=== PATIENT | male | born 1975 | race Caucasian/White ===

== ENCOUNTER 2019-09-15 04:25 | Observation (INO) | payer BC, SELFPAY ==
[2019-09-15] VITALS (28 sets, daily range): BP systolic 125–171; BP diastolic 63–93; PULSE 63–100; RESP 11–20; TEMP 36.6–36.8; O2SAT 92–97; BMI 41.0
--- NOTE | 2019-09-15 04:32 | ED_ITS ---
Entered by Julisa Bettencourt, acting as scribe for Juan Aguilera MD Documented by User: Juan Aguilera MD 09/15/19 05:21 HPI - Chest Pain General: Chief Complaint: Chest Pain Stated Complaint: CP/SOB Time Seen by Provider: 09/15/19 04:29 Source: patient and family Mode of arrival: ambulatory Limitations: no limitations History of Present Illness: HPI narrative: 43 y/o male presents to the ED with complaint of chest pain and SOB. Pt states he has had some upper respiratory issues recently: cough, congestion. He has had some abnormal EKGs noted by Dr. Palencia and has a stress test scheduled for Wednesday. Pt states he has had symptoms similar to this in the past, but tonight seems to be more respiratory in nature, as opposed to the usual cardiac episodes. MD complaint: chest pain Onset (ago): hour(s) Timing of current episode: constant Prior episodes: Yes Onset: during rest Associated symptoms: Reports dyspnea; Deny abdominal pain, fever(s), nausea or vomiting Review of Systems Const: Denies: fever or chills Eyes: Denies: change in vision ENMT: Reports: nasal discharge and nasal congestion Card: Reports: chest pain Resp: Reports: shortness of breath, productive cough, pain on inspiration and chest congestion GI: Denies: abdominal pain, nausea, vomiting or diarrhea Musc: Denies: back pain or joint pain Skin/Breast: Denies: rash Neuro: Denies: headache or behavioral changes Psych: Denies: depression Endo: Denies: excessive urination Uziel/Lymph: Denies: easy bruising All/Imm: Denies: hives PFSH ED PFSH: Statuses (acute, chronic, etc) shown below reflect problem list status as previously entered and may not be historically accurate Family History Mother CAD (coronary artery disease) Father Stroke Social History Smoking and tobacco status: former smoker Alcohol intake: never Substance/Drug Use: never Physical Exam Const: COMMON NORMALS: no apparent distress, oriented x3 and healthy appearing HENMT: COMMON NORMALS: normocephalic and external nose normal HEAD & SCALP: normocephalic NOSE: external nose normal Eye: COMMON NORMALS: PERRL PUPIL: Yes PERRL Neck/C-Spine: COMMON NORMALS: full ROM and no lymphadenopathy Chest: COMMONS NORMALS: inspection of chest normal Resp: COMMON NORMALS: normal respiratory effort, no use of accessory muscles and clear to auscultation bilaterally AUSCULTATION: clear to auscultation bilaterally Cardio: COMMON NORMALS: regular rate and regular rhythm RATE: regular rate RHYTHM: regular rhythm GI: COMMON NORMALS: normal to inspection, nondistended, normoactive bowel sounds, soft to palpation, non-tender and no masses PALPATION: Yes soft Back/Pelvis: THORACIC SPINE/UPPER BACK: Yes normal to inspection Extremity: COMMON NORMALS: normal to inspection, full ROM and normal capillary refill Neuro: COMMON NORMALS: oriented x3 Psych: COMMON NORMALS: mental status grossly normal and cooperative Skin: COMMON NORMALS: no rashes or lesions noted GENERAL SKIN EXAM: no rashes or lesions noted Course Vital Signs: Vital signs: Vital Signs Temperature 98.6 F 09/16/19 14:11 Pulse Rate 76 09/16/19 12:00 Respiratory Rate 16 09/16/19 14:11 Blood Pressure 110/75 09/16/19 12:00 Pulse Oximetry 96 09/16/19 14:11 MDM - Chest Pain MDM Narrative: Medical decision making narrative: Patient presents here with chest pain. Patient's initial EKG here is normal and x-ray is normal as well. He has been pain-free while he is here. Patient's care turned over to Dr. Orantes to follow labs including troponin and likely 2-hour troponin. He is scheduled for a stress test next Wednesday. Lab Data: Labs: Lab Results 09/15/19 09/15/19 09/15/19 Range/Units 04:43 04:43 04:43 WBC 11.0 H (4.0-10.0) 10^3/ uL RBC 4.78 (4.1-5.3) 10^6/u L Hgb 13.2 (11.7-16.6) g/dL Hct 40.4 L (42.0-52.0) % MCV 84.5 (80-94) fL MCH 27.6 L (28.0-34.0) pg MCHC 32.7 (30.0-36.0) g/dL RDW 12.2 (12.1-15.1) % Plt Count 261 (130-400) 10^3/c mm MPV 11.0 H (7.4-10.4) fL Neut % (Auto) 65.3 % Lymph % (Auto) 25.3 % Kay % (Auto) 6.4 % Eos % (Auto) 2.1 % Baso % (Auto) 0.5 % Neut # (Auto) 7.2 (1.8-7.7) 10^3/u L Lymph # (Auto) 2.8 (0.8-4.8) 10^3/u L Kay # (Auto) 0.7 (0.2-0.9) 10^3/u L Eos # (Auto) 0.2 (0.0-0.8) 10^3/u L Baso # (Auto) 0.1 (0.0-0.1) 10^3/u L Nucleated RBC % (a uto) 0 % Nucleated RBCs # 0.0 /100WBC Sodium 134 L (136-145) mmol/L Potassium 3.9 (3.5-5.1) mmol/L Chloride 100 (98-107) mmol/L Carbon Dioxide 25 (22-29) mmol/L Anion Gap 12.9 (5-19) BUN 14 (6-20) mg/dL Creatinine 0.7 (0.7-1.2) mg/dL GFR Calculation 123.1 (90-130) mL/min Glucose 134 H (74-109) mg/dL POC Glucose (70-110) mg/dL Calcium 9.9 (8.6-10.0) mg/Dl Total Bilirubin 0.2 (0.15-1.2) mg/dL AST 16 (0-40) U/L ALT 26 (0-41) U/L Alkaline Phosphata se 112 (40-130) IU/L Troponin T Baselin e 6 (0-15) ng/mL Troponin T 120 Min [place] (0-15) ng/mL Delta Troponin T (0-10) ABS# NT-Pro-B Natriuret Pep 22 (0-125) pg/mL Total Protein 6.4 L (6.6-8.7) g/dL Albumin 4.2 (3.5-5.2) g/dL Globulin 2.2 (1.3-4.6) g/dL 09/15/19 09/15/19 Range/Units 04:43 06:57 WBC (4.0-10.0) 10^3/ uL RBC (4.1-5.3) 10^6/u L Hgb (11.7-16.6) g/dL Hct (42.0-52.0) % MCV (80-94) fL MCH (28.0-34.0) pg MCHC (30.0-36.0) g/dL RDW (12.1-15.1) % Plt Count (130-400) 10^3/c mm MPV (7.4-10.4) fL Neut % (Auto) % Lymph % (Auto) % Kay % (Auto) % Eos % (Auto) % Baso % (Auto) % Neut # (Auto) (1.8-7.7) 10^3/u L Lymph # (Auto) (0.8-4.8) 10^3/u L Kay # (Auto) (0.2-0.9) 10^3/u L Eos # (Auto) (0.0-0.8) 10^3/u L Baso # (Auto) (0.0-0.1) 10^3/u L Nucleated RBC % (a uto) % Nucleated RBCs # /100WBC Sodium (136-145) mmol/L Potassium (3.5-5.1) mmol/L Chloride (98-107) mmol/L Carbon Dioxide (22-29) mmol/L Anion Gap (5-19) BUN (6-20) mg/dL Creatinine (0.7-1.2) mg/dL GFR Calculation (90-130) mL/min Glucose (74-109) mg/dL POC Glucose 121 (70-110) mg/dL Calcium (8.6-10.0) mg/Dl Total Bilirubin (0.15-1.2) mg/dL AST (0-40) U/L ALT (0-41) U/L Alkaline Phosphata se (40-130) IU/L Troponin T Baselin e (0-15) ng/mL Troponin T 120 Min [place] 6.00 (0-15) ng/mL Delta Troponin T 0 (0-10) ABS# NT-Pro-B Natriuret Pep (0-125) pg/mL Total Protein (6.6-8.7) g/dL Albumin (3.5-5.2) g/dL Globulin (1.3-4.6) g/dL Imaging Data^: CXR: Attestation: I personally reviewed and interpreted this imaging study as follows: My impression: No acute abnormality EKG Data^: EKG 1: Attestation: I personally reviewed and interpreted this EKG as follows: EKG interpretation date: 09/15/19 EKG interpretation time: 04:32 Interpretation: Normal sinus rhythm heart rate [address] or T wave abnormalities QRS 110 QTc 400 Discharge Plan Discharge Patient Disposition: Admitted As Inpatient Admit Provider: Mary Lopez Clinical Impression: Chest pain Qualifiers: Chest pain type: unspecified Qualified Code(s): R07.9 - Chest pain, unspecified Condition: Stable Discharge Orders: Discharge Order (Routine); Ordered 09/16/19 Ordered By: Mary Lopez Referrals: Callie Palencia MD [Physician] - 4-7 days (Please call Wednesday to set up a follow up appointment) Rena Hook DO [Primary Care Provider] - 4-7 days (Please call Wednesday to set up a follow up appointment.) Discharge Diet: Low Salt Discharge Activity: Resume usual activity Patient Instructions: Metolazone (By mouth), Potassium Chloride (By mouth), Congestive Heart Failure Additional Instructions: Lasix 80 mg twice daily Metolazone 2.5 mg twice daily, stop on Wednesday and call Dr. Palencia's office for further recommendations Increase potassium to 60 mEq twice daily Forms: Work/Release Restrictions Discharge Date/Time: 09/15/19 10:46 Sign Out Sign Out Data: Patient Sign Out occurred on 09/15/19 at 08:50. Patient's care was discussed, and care was transferred from to Ino Orantes DO. Coding Level of Care Code ED Audit Control Clerk for Chg Fwd Exam Problem Focused Documented by User: Ion Orantes DO 09/18/19 07:47 HPI - Chest Pain General: Chief Complaint: Chest Pain Stated Complaint: CP/SOB Time Seen by Provider: 09/15/19 04:29 Review of Systems Card: Reports: chest pain and shortness of breath on exertion PFSH ED PFSH: Statuses (acute, chronic, etc) shown below reflect problem list status as previously entered and may not be historically accurate Family History Mother CAD (coronary artery disease) Father Stroke Social History Smoking and tobacco status: former smoker Alcohol intake: never Substance/Drug Use: never Course ED course: 0755 Patient second troponin is negative. His chest x-ray is normal he is not having any orthopnea. Of concern is he is 43 years old and he has known coronary artery disease he is having chest pain and shortness of breath with exertion that is relieved by rest he is scheduled for a stress test early next week. At this point I think would be better to put him on observation consult cardiology see if they will go through the stress test or to some other other kind of diagnostic testing. Discussed with the patient and Dr. Moy Winter recommends observation patient is agreeable will admit to the hospitalist. [address] Winter and have also discussed with Dr. John Lopez will admit consult Dr. Winter. Vital Signs: Vital signs: Vital Signs Temperature 98.6 F 09/16/19 14:11 Pulse Rate 76 09/16/19 12:00 Respiratory Rate 16 09/16/19 14:11 Blood Pressure 110/75 09/16/19 12:00 Pulse Oximetry 96 09/16/19 14:11 MDM - Chest Pain Lab Data: Labs: Lab Results 09/15/19 09/15/19 09/15/19 Range/Units 04:43 04:43 04:43 WBC 11.0 H (4.0-10.0) 10^3/ uL RBC 4.78 (4.1-5.3) 10^6/u L Hgb 13.2 (11.7-16.6) g/dL Hct 40.4 L (42.0-52.0) % MCV 84.5 (80-94) fL MCH 27.6 L (28.0-34.0) pg MCHC 32.7 (30.0-36.0) g/dL RDW 12.2 (12.1-15.1) % Plt Count 261 (130-400) 10^3/c mm MPV 11.0 H (7.4-10.4) fL Neut % (Auto) 65.3 % Lymph % (Auto) 25.3 % Kay % (Auto) 6.4 % Eos % (Auto) 2.1 % Baso % (Auto) 0.5 % Neut # (Auto) 7.2 (1.8-7.7) 10^3/u L Lymph # (Auto) 2.8 (0.8-4.8) 10^3/u L Kay # (Auto) 0.7 (0.2-0.9) 10^3/u L Eos # (Auto) 0.2 (0.0-0.8) 10^3/u L Baso # (Auto) 0.1 (0.0-0.1) 10^3/u L Nucleated RBC % (a uto) 0 % Nucleated RBCs # 0.0 /100WBC Sodium 134 L (136-145) mmol/L Potassium 3.9 (3.5-5.1) mmol/L Chloride 100 (98-107) mmol/L Carbon Dioxide 25 (22-29) mmol/L Anion Gap 12.9 (5-19) BUN 14 (6-20) mg/dL Creatinine 0.7 (0.7-1.2) mg/dL GFR Calculation 123.1 (90-130) mL/min Glucose 134 H (74-109) mg/dL POC Glucose (70-110) mg/dL Calcium 9.9 (8.6-10.0) mg/Dl Total Bilirubin 0.2 (0.15-1.2) mg/dL AST 16 (0-40) U/L ALT 26 (0-41) U/L Alkaline Phosphata se 112 (40-130) IU/L Troponin T Baselin e 6 (0-15) ng/mL Troponin T 120 Min [place] (0-15) ng/mL Delta Troponin T (0-10) ABS# NT-Pro-B Natriuret Pep 22 (0-125) pg/mL Total Protein 6.4 L (6.6-8.7) g/dL Albumin 4.2 (3.5-5.2) g/dL Globulin 2.2 (1.3-4.6) g/dL 09/15/19 09/15/19 Range/Units 04:43 06:57 WBC (4.0-10.0) 10^3/ uL RBC (4.1-5.3) 10^6/u L Hgb (11.7-16.6) g/dL Hct (42.0-52.0) % MCV (80-94) fL MCH (28.0-34.0) pg MCHC (30.0-36.0) g/dL RDW (12.1-15.1) % Plt Count (130-400) 10^3/c mm MPV (7.4-10.4) fL Neut % (Auto) % Lymph % (Auto) % Kay % (Auto) % Eos % (Auto) % Baso % (Auto) % Neut # (Auto) (1.8-7.7) 10^3/u L Lymph # (Auto) (0.8-4.8) 10^3/u L Kay # (Auto) (0.2-0.9) 10^3/u L Eos # (Auto) (0.0-0.8) 10^3/u L Baso # (Auto) (0.0-0.1) 10^3/u L Nucleated RBC % (a uto) % Nucleated RBCs # /100WBC Sodium (136-145) mmol/L Potassium (3.5-5.1) mmol/L Chloride (98-107) mmol/L Carbon Dioxide (22-29) mmol/L Anion Gap (5-19) BUN (6-20) mg/dL Creatinine (0.7-1.2) mg/dL GFR Calculation (90-130) mL/min Glucose (74-109) mg/dL POC Glucose 121 (70-110) mg/dL Calcium (8.6-10.0) mg/Dl Total Bilirubin (0.15-1.2) mg/dL AST (0-40) U/L ALT (0-41) U/L Alkaline Phosphata se (40-130) IU/L Troponin T Baselin e (0-15) ng/mL Troponin T 120 Min [place] 6.00 (0-15) ng/mL Delta Troponin T 0 (0-10) ABS# NT-Pro-B Natriuret Pep (0-125) pg/mL Total Protein (6.6-8.7) g/dL Albumin (3.5-5.2) g/dL Globulin (1.3-4.6) g/dL Discharge Plan Discharge Patient Disposition: Admitted As Inpatient Admit Provider: Mary Lopez Clinical Impression: Chest pain Qualifiers: Chest pain type: unspecified Qualified Code(s): R07.9 - Chest pain, unspecified Condition: Stable Discharge Orders: Discharge Order (Routine); Ordered 09/16/19 Ordered By: Mary Lopez Referrals: Callie Palencia MD [Physician] - 4-7 days (Please call Wednesday to set up a follow up appointment) Rena Hook DO [Primary Care Provider] - 4-7 days (Please call Wednesday to set up a follow up appointment.) Discharge Diet: Low Salt Discharge Activity: Resume usual activity Patient Instructions: Metolazone (By mouth), Potassium Chloride (By mouth), Congestive Heart Failure Additional Instructions: Lasix 80 mg twice daily Metolazone 2.5 mg twice daily, stop on Wednesday and call Dr. Palencia's office for further recommendations Increase potassium to 60 mEq twice daily Forms: Work/Release Restrictions Discharge Date/Time: 09/15/19 10:46 Sign Out Sign Out Data: Patient Sign Out occurred on 09/15/19 at 08:50. Patient's care was discussed, and care was transferred from to Ino Orantes DO. Coding Level of Care Code ED Audit Control Clerk for Chg Fwd Exam Problem Focused The documentation recorded by the Sg baez Ashley, accurately reflects the service I personally performed and the decisions made by me, Juan Aguilera MD Sep 15, 2019 04:25
--- NOTE | 2019-09-15 04:34 | ECG_ITS ---
Measurements Intervals [place] Rate: 78 P: 52 MS: 168 QRS: 17 QRSD: 110 T: 37 QT: 367 QTc: 419 SINUS RHYTHM NONSPECIFIC T-WAVE ABNORMALITY Compared to ECG 03/26/2019 16:48:27 T-wave abnormality now present Electronically Signed On 09-15-2019 14:40:12 LOAN SERVICES PROFESSIONAL by Ishmael South M.D. [id number]
--- NOTE | 2019-09-15 04:34 | XR_ITS ---
WS: [id number] CHEST XRAY TECHNIQUE: Portable chest. CLINICAL INFORMATION: sob COMPARISON: None. FINDINGS: Heart: Normal cardiac silhouette. Lungs: Calcified granuloma right upper lobe. No acute pulmonary infiltrates. Bones: Normal visualized bony structures. XR/XR chest 1V portable [id number] IMPRESSION: No acute chest findings
[2019-09-15] MEDS: aspirin 81 mg Chew Tablet 324 MG PO (04:42)
--- NOTE | 2019-09-15 04:46 | PC.NURSE ---
Informed nurse and doctor of patient blood glucose is 121
[2019-09-15 04:49] LABS: Glucose Point of Care 121 mg/dL (70-110)
[2019-09-15 04:51] LABS: Basophils # 0.1 10^3/uL (0.0-0.1); Basophils % 0.5 %; Eosinophils # 0.2 10^3/uL (0.0-0.8); Eosinophils % 2.1 %; Hematocrit 40.4 % (42.0-52.0); Hemoglobin 13.2 g/dL (11.7-16.6); Lymphocytes # 2.8 10^3/uL (0.8-4.8); Lymphocytes % 25.3 %; Mean Corpuscular HGB Conc 32.7 g/dL (30.0-36.0); Mean Corpuscular Hemoglobin 27.6 pg (28.0-34.0); Mean Corpuscular Volume 84.5 fL (80-94); Monocytes # 0.7 10^3/uL (0.2-0.9); Monocytes % 6.4 %; Neutrophils # 7.2 10^3/uL (1.8-7.7); Neutrophils % 65.3 %; Nucleated Red Blood Cells % 0 %; Platelet Count 261 10^3/cmm (130-400); Red Blood Count 4.78 10^6/uL (4.1-5.3); Red Cell Distribution Width 12.2 % (12.1-15.1)
[2019-09-15 05:26] LABS: Troponin(5th) Baseline 6 ng/mL (0-15)
[2019-09-15 05:33] LABS: Alanine Aminotransferase 26 U/L (0-41); Albumin Level 4.2 g/dL (3.5-5.2); Alkaline Phosphatase 112 IU/L (40-130); Anion Gap 12.9 (5-19); Aspartate Amino Transferase 16 U/L (0-40); Blood Urea Nitrogen 14 mg/dL (6-20); Calcium 9.9 mg/Dl (8.6-10.0); Carbon Dioxide 25 mmol/L (22-29); Chloride 100 mmol/L (98-107); Globulin 2.2 g/dL (1.3-4.6); Glomerular Filtration Rate 123.1 mL/min (90-130); Glucose 134 mg/dL (74-109); NT Pro B Type Natriuretic Pept 22 pg/mL (0-125); Potassium 3.9 mmol/L (3.5-5.1); Sodium 134 mmol/L (136-145); Total Bilirubin 0.2 mg/dL (0.15-1.2); Total Protein 6.4 g/dL (6.6-8.7)
--- NOTE | 2019-09-15 06:34 | ECG_ITS ---
Measurements Intervals [place] Rate: 68 P: 22 WI: 170 QRS: 10 QRSD: 113 T: 31 QT: 382 QTc: 407 SINUS RHYTHM MODERATE INTRAVENTRICULAR CONDUCTION DELAY [110+ ms QRS DURATION] Compared to ECG 03/26/2019 16:48:27 Intraventricular conduction delay now present Electronically Signed On 09-15-2019 14:44:26 APPEALS BOARD REFEREE by Ishmael South M.D. [id number]
[2019-09-15 07:27] LABS: Troponin 5 2HR Delta 0 ABS# (0-10)
--- NOTE | 2019-09-15 10:34 | ECG_ITS ---
Measurements Intervals [place] Rate: 61 P: 30 ME: 169 QRS: 31 QRSD: 114 T: 30 QT: 410 QTc: 414 SINUS RHYTHM MODERATE INTRAVENTRICULAR CONDUCTION DELAY [110+ ms QRS DURATION] Compared to ECG 03/26/2019 16:48:27 Intraventricular conduction delay now present Electronically Signed On 09-15-2019 14:44:44 QUALITY CONTROL ASSISTANT by Ishmael South M.D. [id number]
[2019-09-15 11:02] LABS: Troponin 5 6HR 6.88 ng/L (0-15); Troponin 5 6HR Delta 0.88 ng/L (0-12)
[2019-09-15] MEDS: sodium chloride 0.9% 1,000 ML 100 ML IV ×2 (11:24→21:29)
[2019-09-15] MEDS: nitroglycerin 1 gm/inch oint Pkt 1 INCH TOPICAL (11:25)
[2019-09-15 12:15] LABS: Glucose Point of Care 75 mg/dL (70-110)
--- NOTE | 2019-09-15 13:34 | PM.HP ---
Providers/Chief Complaint Admitting Physician: Mary Lopez MD Primary Care Provider: Rena Hook Chief Complaint: CP/SOB History of Present Illness Giuliano Batres is a 43 year old male that presented to the emergency department today for increasing chest pain and shortness of breath. He reported that he has been having this progressively over the past several weeks. He reports increasing shortness of breath when lying flat at night but also reports increasing dyspnea on exertion. He states that he will occasionally have some pressure in the center of his chest that comes and goes, typically will resolve quickly. He reports that activity does seem to make his symptoms worse, does not know any alleviating symptoms. He denies any abdominal pain, does report GERD but it is much improved with his Dexilant. Patient reports that he was supposed to have a stress test scheduled in the clinic next week, follows with Dr. Palencia in the outpatient setting. Patient does report fluctuating weight from day-to-day, no significant increase in weight, no significant increase in lower extremity swelling Patient was seen and evaluated in the emergency department and admitted for further evaluation and treatment due to concern for chest pain and shortness of breath Review of Systems Const: Denies: fever or chills Eyes: Denies: change in vision ENMT: Reports: nasal congestion; Denies: nasal discharge Card: Reports: chest pain Resp: Reports: shortness of breath; Denies: productive cough, pain on inspiration or chest congestion GI: Denies: abdominal pain, nausea, vomiting or diarrhea Musc: Denies: back pain or joint pain Skin/Breast: Denies: rash Neuro: Denies: headache or behavioral changes Psych: Denies: depression Endo: Denies: excessive urination Uziel/Lymph: Denies: easy bruising All/Imm: Denies: hives Medications/Allergies Home Medications Medication Instructions Recorded Confirmed Last Taken Type aspirin [Adult Low Dose Aspirin] 81 mg PO DAILY 09/15/19 09/15/19 Unknown History clopidogrel 75 mg PO DAILY 09/15/19 09/15/19 Unknown History dexlansoprazole [Dexilant] 60 mg PO DAILY 09/15/19 09/15/19 Unknown History digoxin 125 mcg PO DAILY 09/15/19 09/15/19 Unknown History furosemide 80 mg PO BID 09/15/19 09/15/19 Unknown History lisinopril 40 mg PO DAILY 09/15/19 09/15/19 Unknown History magnesium oxide [MagOx] 400 mg PO DAILY 09/15/19 09/15/19 Unknown History pttqdwzy-vni-sycuo-vit K-lycop 1 tab PO 09/15/19 Unknown History [Men's Multivitamin] nebivolol [Bystolic] 2.5 mg PO DAILY 09/15/19 09/15/19 Unknown History potassium chloride 40 meq PO BID 09/15/19 09/15/19 Unknown History rosuvastatin 20 mg PO DAILY 09/15/19 09/15/19 Unknown History Allergies Allergy/AdvReac Type Severity Reaction Status Date / Time No Known Allergies Allergy Verified 09/15/19 04:34 PFSH Acute PFSH: Statuses (acute, chronic, etc) shown below reflect problem list status as previously entered and may not be historically accurate Medical History (Updated 09/15/19 @ 13:37 by Mary Lopez DO) Congestive heart failure (Acute) Coronary artery disease (Acute) Hypertension (Acute) Obstructive sleep apnea (Acute) Surgical History (Updated 09/15/19 @ 13:38 by Mary Lopez DO) Hx of cardiac cath (Acute) Hx of cholecystectomy (Acute) Family History (Updated 09/15/19 @ 13:38 by Mary Lopez DO) Mother CAD (coronary artery disease) Father Stroke Social History (Updated 09/15/19 @ 13:39 by Mary Lopez DO) Smoking and tobacco status: former smoker Alcohol intake: never Substance/Drug Use: never Vitals/I&O/Wt Last Vital Signs Temp 98.1 F 09/15/19 11:07 Pulse 68 09/15/19 11:07 Resp 18 09/15/19 11:07 BP 142/83 09/15/19 11:07 Pulse Ox 96 09/15/19 11:07 Weight last 48 hrs Weight 122.47 kg Physical Exam Const: COMMON NORMALS: oriented x3 and alert GENERAL APPEARANCE: cooperative ORIENTATION/CONSCIOUSNESS: Yes awake, Yes oriented to person, Yes oriented to place and Yes oriented to time HENMT: COMMON NORMALS: normocephalic and head/scalp atraumatic HEAD & SCALP: normocephalic and atraumatic Eye: COMMON NORMALS: PERRL PUPIL: Yes PERRL Neck/C-Spine: COMMON NORMALS: supple GENERAL: Yes normal visual inspection Resp: COMMON NORMALS: normal respiratory effort and clear to auscultation bilaterally AUSCULTATION: clear to auscultation bilaterally, no rhonchi and no wheezes Cardio: COMMON NORMALS: regular rate, regular rhythm and no murmurs RATE: regular rate RHYTHM: regular rhythm GI: COMMON NORMALS: soft to palpation and non-tender INSPECTION: No abdominal distension AUSCULTATION: Yes normoactive bowel sounds PALPATION: Yes soft Extremity: COMMON NORMALS: no clubbing, cyanosis or edema and no calf tenderness Neuro: COMMON NORMALS: oriented x3, CN's II-XII intact bilaterally, moves all extremities and no focal motor deficits SENSORIUM/ORIENTATION: Yes alert, Yes oriented to person, Yes oriented to place and Yes oriented to time SPEECH: speech normal Psych: COMMON NORMALS: mental status grossly normal and cooperative Skin: COMMON NORMALS: no rashes or lesions noted GENERAL SKIN EXAM: no rashes or lesions noted Data Imaging^: CXR: Radiologist's impression: FINDINGS: Heart: Normal cardiac silhouette. Lungs: Calcified granuloma right upper lobe. No acute pulmonary infiltrates. Bones: Normal visualized bony structures. A&P Assessment and plan (1) Congestive heart failure: Mild fluid overload IV Lasix 80 mg every 12 hours Repeat echocardiogram Cardiology consulted in the ED, will follow up with recommendations, appreciate recommendations and assistance in patient's care. Strict I's and O's and daily weights Status: Acute Code(s): I50.9 - Heart failure, unspecified (2) Coronary artery disease: Patient is scheduled for stress test next week, will follow up with cardiology recommendations due to his intermittent chest pain and dyspnea on exertion Status: Acute Code(s): I25.10 - Atherosclerotic heart disease of [place] coronary artery without angina pectoris (3) Hypertension: Continue on current medications of lisinopril, Lasix, Bystolic Status: Acute Code(s): I10 - Essential (primary) hypertension (4) Obstructive sleep apnea: Continue with home CPAP Status: Acute Code(s): G47.33 - Obstructive sleep apnea (adult) (pediatric) (5) Chest pain: Chest pain plan as above, will continue with IV diuresis and monitor response to treatment. Consider further cardiac imaging or stress test versus cardiac cath based on cardiology recommendations. At time of exam patient was chest pain-free, nitroglycerin as needed for discomfort Status: Acute Qualifiers: Chest pain type: unspecified Qualified Code(s): R07.9 - Chest pain, unspecified Code(s): R07.9 - Chest pain, unspecified Attestations Medical Necessity Statement*: Hospitalization due to chest pain with concern for CHF exacerbation, expected stay less than 2 midnights Coding Level of Care Code Acute Hand Stonecutter for [facility] Fwd Diagnoses Congestive heart failure I50.9 Coronary artery disease I25.10 Hypertension I10 Obstructive sleep apnea G47.33 Chest pain R07.9 Chest pain type: unspecified
--- NOTE | 2019-09-15 13:42 | USCV_ITS ---
Giuliano Batres Age: 43 Gender: M : 1975 Exam Date: 09/15/2019 15:11 Ordering Phys: Mary Lopez DO Technologist: Aaron Metcalf Exam Location: [facility] Indication: CHF CHEST PAIN BP: 132 / 72 HR: 65 Rhythm: Sinus Technical Quality: Fair MEASUREMENTS (Male / Female) Normal Values 2D ECHO LV Diastolic Diameter PLAX 3.8 cm 4.2 - 5.9 / 3.9 - 5.3 cm LV Systolic Diameter PLAX 2.5 cm IVS Diastolic Thickness 1.0 cm 0.6 - 1.0 / 0.6 - 0.9 cm IVS Systolic Thickness 1.2 cm LVPW Diastolic Thickness 1.2 cm 0.6 - 1.0 / 0.6 - 0.9 cm LVPW Systolic Thickness 1.4 cm LVOT Diameter 2.0 cm LV Ejection Fraction 2D Teich 62.9 % LV Ejection Fraction MOD 2C 74.4 % LV Ejection Fraction 2C AL 73.6 % LA Diameter 4.1 cm LA Width 4.6 cm LA Height 5.1 cm RA Width 3.6 cm RA Height 4.8 cm Aorta at Sinotubular Diameter 3.4 cm M-MODE LV Diastolic Diameter MM 6.3 cm 4.2 - 5.9 / 3.9 - 5.3 cm LV Systolic Diameter MM 3.3 cm LV Ejection Fraction MM Teich 77.7 % IVS Diastolic Thickness MM 1.2 cm 0.6 - 1.0 / 0.6 - 0.9 cm IVS Systolic Thickness MM 1.8 cm LVPW Diastolic Thickness MM 1.0 cm 0.6 - 1.0 / 0.6 - 0.9 cm LVPW Systolic Thickness MM 2.4 cm RV Diastolic Diameter MM 1.2 cm Aortic Annulus Diameter 4.2 cm LA Ao Ratio MM 1.0 MV E Point Septal Separation 0.9 cm DOPPLER AV Peak Velocity 111.0 cm/s LVOT Peak Velocity 83.0 cm/s AV Area Cont Eq vti 2.9 cm squared AV Area Cont Eq pk 2.4 cm squared MV Area PHT 5.0 cm squared Mitral E to A Ratio 1.1 MV E' Velocity 10.0 cm/s Mitral E to MV E' Ratio 8.3 Mitral E to LV E' Lateral Ratio 7.3 Mitral E to LV E' Septal Ratio 9.8 TR Peak Velocity 145.0 cm/s TR Peak Gradient 8.4 mmHg Right Atrial Pressure 3.0 mmHg Pulmonary Artery Systolic Pressu 11.4 mmHg FINDINGS Left Ventricle Possibly normal left ventricular size and systolic function, EF 63 %. No regional wall motion abnormalities. Right Ventricle Could not be visualized well Right Atrium Could not be visualized well Left Atrium Possibly of normal size Mitral Valve Thickened mitral valve. Aortic Valve Could not visualize. No obvious abnormalities noted Tricuspid Valve Tricuspid valve not well visualized. Pulmonic Valve Pulmonic valve not well visualized. Pericardium No pericardial effusion. Aorta Normal aortic annulus size. CONCLUSIONS Possibly normal left ventricular size and systolic function, EF 63 %. No gross regional wall motion abnormalities. Thickened mitral valve. The right-sided structures could not be visualized well There is no pericardial effusion. Technically difficult study because of the poor ultrasonic window. Comparison with the previous study is difficult because of the difference in the technical quality. Dr Idalia Kohler MD FACC (Electronically Signed) Final Date: 15 September 2019 20:13 S
[2019-09-15] MEDS: atorvastatin 40 mg Tablet 80 MG PO (14:20)
[2019-09-15] MEDS: clopidogrel 75 mg Tablet PO (14:21)
[2019-09-15] MEDS: pantoprazole DR 40 mg Tablet PO (14:21)
[2019-09-15] MEDS: aspirin 81 mg EC Tablet PO (14:22)
[2019-09-15] MEDS: lisinopril 20 mg Tablet 40 MG PO (14:23)
[2019-09-15] MEDS: FUROsemide 10 mg/mL SDV 10mL 80 MG IVP (14:24)
[2019-09-15] MEDS: enoxaparin 40 mg/0.4 mL Syringe SUBCUT (14:25)
--- NOTE | 2019-09-15 14:36 | PC.RESP ---
set-up @ 8142 04-24 auto pt on ra
[2019-09-15] MEDS: digoxin 125 mcg Tablet PO (14:56)
[2019-09-15] MEDS: acetaminophen 325 mg Tablet 650 MG PO (16:43)
[2019-09-15] MEDS: magnesium oxide 400 mg tablet PO (16:45)
[2019-09-15] MEDS: metOLazone 5 MG Tablet 2.5 MG PO (16:50)
--- NOTE | 2019-09-15 18:11 | P.CONIM_ITS ---
Providers/Reason For Consult Consulting Physican/Specialty*: Cardiology Reason for Consult*: Chest pressure and worsening of heart failure Attending Physician: Mary Lopez MD Primary Care Provider: Rena Hook History of Present Illness History of Present Illness Giuliano Batres is a 43 year old male History of ST elevation PA, moderately depressed LV function, history of systolic heart failure who was scheduled to undergo stress test next week presented to the hospital with worsening of shortness of breath and some chest pressure. He was admitted and ruled out for acute coronary syndrome. We have been asked to assist in his care. Patient gave me history of orthopnea lower extremity edema and shortness of breath upon exertion for the last few days. He admits to chest pressure but denies any chest pain per se. He has noticed that abdominal girth has i ncreased. He denies fevers chills coughRunning chest infection. Review of Systems Const: Denies: fever Eyes: Denies: change in vision Card: Reports: chest pain and edema; Denies: palpitations or irregular heart rhythm Resp: Reports: shortness of breath GI: Denies: abdominal pain, nausea or vomiting Neuro: Denies: numbness in extremities or weakness in extremities Psych: Denies: anxiety or depression Meds/Allergies Home Medications and Allergies Home Medications Medication Instructions Recorded Confirmed Type aspirin [Adult Low Dose Aspirin] 81 mg PO DAILY 09/15/19 09/15/19 History clopidogrel 75 mg PO DAILY 09/15/19 09/15/19 History dexlansoprazole [Dexilant] 60 mg PO DAILY 09/15/19 09/15/19 History digoxin 125 mcg PO DAILY 09/15/19 09/15/19 History furosemide 80 mg PO BID 09/15/19 09/15/19 History lisinopril 40 mg PO DAILY 09/15/19 09/15/19 History magnesium oxide [MagOx] 400 mg PO DAILY 09/15/19 09/15/19 History [id number] K-lycop 1 tab PO 09/15/19 History [Men's Multivitamin] nebivolol [Bystolic] 2.5 mg PO DAILY 09/15/19 09/15/19 History potassium chloride 40 meq PO BID 09/15/19 09/15/19 History rosuvastatin 20 mg PO DAILY 09/15/19 09/15/19 History Allergies Allergy/AdvReac Type Severity Reaction Status Date / Time No Known Allergies Allergy Verified 09/15/19 04:34 Current Medications Current Medications Generic Name Dose Route Start Last Admin Trade Name Freq PRN Reason Stop Dose Admin Acetaminophen 650 mg 09/15/19 10:51 09/15/19 16:43 Tylenol PO 650 mg Q6H PRN Administration Mild/Mod Pain Or Temp >/= 101 Aspirin 81 mg 09/15/19 13:35 09/15/19 14:22 Aspirin Ec PO 81 mg DAILY DELGADO Administration Atorvastatin Calcium 80 mg 09/15/19 13:35 09/15/19 14:20 Lipitor PO 80 mg DAILY DELGADO Administration Clopidogrel Bisulfate 75 mg 09/15/19 13:35 09/15/19 14:21 Plavix PO 75 mg DAILY DELGADO Administration Digoxin 125 mcg 09/15/19 13:35 09/15/19 14:56 Lanoxin PO 125 mcg DAILY DELGADO Administration Enoxaparin Sodium 40 mg 09/15/19 13:45 09/15/19 14:25 Lovenox SUBCUT 40 mg Q24H DELGADO Administration Furosemide 80 mg 09/15/19 13:45 09/15/19 14:24 Lasix IVP 80 mg Q12H DELGADO Administration Sodium Chloride 1,000 mls @ 100 mls/hr 09/15/19 10:51 09/15/19 11:24 Sodium Chloride 0.9% IV 100 mls/hr .Q10H DELGADO Administration Lisinopril 40 mg 09/15/19 13:35 09/15/19 14:23 Prinivil PO 40 mg DAILY DELGADO Administration Magnesium Oxide 400 mg 09/15/19 13:35 09/15/19 16:45 Magox PO 400 mg DAILY DELGADO Administration Metolazone 2.5 mg 09/15/19 15:25 09/15/19 17:26 Zaroxolyn PO Not Given BID DELGADO Pantoprazole Sodium 40 mg 09/15/19 13:35 09/15/19 14:21 Protonix PO 40 mg DAILY DELGADO Administration Potassium Chloride 40 meq 09/15/19 13:35 09/15/19 17:23 Klor-Con 10 PO 40 meq BID DELGADO Administration PFSH Acute PFSH: Statuses (acute, chronic, etc) shown below reflect problem list status as previously entered and may not be historically accurate Medical History Congestive heart failure (Acute) Coronary artery disease (Acute) Hypertension (Acute) Obstructive sleep apnea (Acute) Surgical History Hx of cardiac cath (Acute) Hx of cholecystectomy (Acute) Family History Mother CAD (coronary artery disease) Father Stroke Social History Smoking and tobacco status: former smoker Alcohol intake: never Substance/Drug Use: never Vitals/I&O/Wt Last Vital Signs Temp 97.9 F 09/15/19 16:00 Pulse 71 09/15/19 16:00 Resp 16 09/15/19 16:00 BP 128/77 09/15/19 16:00 Pulse Ox 94 09/15/19 16:00 09/15/19 09/15/19 09/15/19 06:59 14:59 22:59 Output Total 700 / 700 Balance -700 / -700 Weight last 48 hrs Weight 270 lb Physical Exam Narrative: EXAM NARRATIVE: GENERAL: Patient is alert, awake and oriented x3. NECK: No jugular vein distension. HEENT: No cyanosis. No icterus. No pallor. HEART: Regularly S1 and S2. No murmur, rub or gallop. LUNGS: Clear to auscultate bilaterally. ABDOMEN: Soft, nontender and nondistended. Positive bowel sounds. No guarding, rebound or tenderness. CENTRAL NERVOUS SYSTEM: Grossly nonfocal. EXTREMITIES: Lower extremities with 1+ edema bilaterally. A&P Assessment and plan (1) Congestive heart failure: Appeared to be decompensated heart failure. I will add metolazone to IV Lasix. We will continue IV Lasix hopefully with further diuresis he will feel better. Further plan will be advised as per progress of the patient Status: Acute Code(s): I50.9 - Heart failure, unspecified (2) Hypertension: Optimally controlled continue medicine Status: Acute Code(s): I10 - Essential (primary) hypertension (3) Coronary artery disease: Patient does not give me history of atypical chest pain he admits to chest pressure which could be nonspecific and due to volume overload. Once diuresed we will further assessment if indicated with stress test or angiogram Status: Acute Code(s): I25.10 - Atherosclerotic heart disease of [place] coronary artery without angina pectoris Coding Level of Care Code Acute Chair Car Driver for Chg Fwd Diagnoses Congestive heart failure I50.9 Hypertension I10 Coronary artery disease I25.10
[2019-09-15 23:23] LABS: Glucose Point of Care 179 mg/dL (70-110)
--- NOTE | 2019-09-15 23:39 | PC.RESP ---
AUTO TITRATING 5 TO 19 cmH2O
[2019-09-16] VITALS (8 sets, daily range): BP systolic 110–158; BP diastolic 74–90; PULSE 57–102; RESP 16–18; TEMP 36.6–37; O2SAT 96
[2019-09-16] MEDS: FUROsemide 10 mg/mL SDV 10mL 80 MG IVP ×2 (03:02→13:21)
[2019-09-16 06:07] LABS: Anion Gap 15.6 (5-19); Blood Urea Nitrogen 11 mg/dL (6-20); Calcium 10.4 mg/Dl (8.6-10.0); Carbon Dioxide 30 mmol/L (22-29); Chloride 92 mmol/L (98-107); Glomerular Filtration Rate 105.5 mL/min (90-130); Glucose 101 mg/dL (74-109); Potassium 3.6 mmol/L (3.5-5.1); Sodium 134 mmol/L (136-145)
[2019-09-16] MEDS: atorvastatin 40 mg Tablet 80 MG PO (08:36)
[2019-09-16] MEDS: lisinopril 20 mg Tablet 40 MG PO (08:36)
[2019-09-16] MEDS: clopidogrel 75 mg Tablet PO (08:36)
[2019-09-16] MEDS: pantoprazole DR 40 mg Tablet PO (08:36)
[2019-09-16] MEDS: aspirin 81 mg EC Tablet PO (08:36)
[2019-09-16] MEDS: digoxin 125 mcg Tablet PO (08:37)
[2019-09-16] MEDS: metOLazone 5 MG Tablet 2.5 MG PO (08:40)
[2019-09-16] MEDS: magnesium oxide 400 mg tablet PO (08:41)
--- NOTE | 2019-09-16 12:58 | PM.DCS ---
Discharge Providers Date of Admission: 09/15/19 08:54 Date of Discharge: 09/17/19 Attending Provider at Admission: Mary Lopez MD Attending Provider at Discharge: Mary Lopez MD Primary Care Provider: Rena Hook Diagnoses at Discharge Discharge Diagnosis (1) Congestive heart failure: Status: Acute Problem details: Improved acute CHF exacerbation Discharged with Lasix 80 mg twice daily Discharged with metolazone 2.5 mg twice daily until Wednesday Call cardiology office at that time for further instructions (2) Hypertension: Status: Acute Problem details: Continue with lisinopril, Lasix, digoxin, Bystolic as previously prescribed (3) Coronary artery disease: Status: Acute Problem details: Continue to follow-up with cardiology as scheduled. Chest pain and shortness of breath related to acute CHF exacerbation Reason for Visit Reason for Visit: Reason For Visit: CP/SOB Hospital Course Hospital Course: Patient was seen and evaluated in the emergency department noted to have concern for dyspnea on exertion and occasional chest pressure. Initial concern for chest pain and patient was placed on observation. Once admitted patient had concern for an acute CHF exacerbation and he was placed on IV Lasix. Cardiology was consulted due to patient's history of coronary artery disease and CHF and continue to follow along with patient during his stay. On date of discharge patient had been diuresing well and had improvement in his symptoms. He was then transition to oral Lasix and continued for short period of time on metolazone that had also been started in the inpatient setting. On date of discharge patient was ambulating the halls with no acute concerns, no chest pain or shortness of breath Physical Exam Const: COMMON NORMALS: no apparent distress, oriented x3 and alert GENERAL APPEARANCE: cooperative ORIENTATION/CONSCIOUSNESS: Yes awake, Yes oriented to person, Yes oriented to place and Yes oriented to time HENMT: COMMON NORMALS: normocephalic, head/scalp atraumatic and external nose normal HEAD & SCALP: normocephalic and atraumatic NOSE: external nose normal Eye: COMMON NORMALS: PERRL PUPIL: Yes PERRL Chest: COMMONS NORMALS: inspection of chest normal Resp: COMMON NORMALS: normal respiratory effort, no use of accessory muscles and clear to auscultation bilaterally AUSCULTATION: clear to auscultation bilaterally, no rhonchi and no wheezes Cardio: COMMON NORMALS: regular rate, regular rhythm and no murmurs RATE: regular rate RHYTHM: regular rhythm GI: COMMON NORMALS: non-tender INSPECTION: No abdominal distension AUSCULTATION: Yes normoactive bowel sounds Back/Pelvis: THORACIC SPINE/UPPER BACK: Yes normal to inspection Extremity: OTHER: Trace lower extremity edema, nonpitting Neuro: COMMON NORMALS: oriented x3, CN's II-XII intact bilaterally, moves all extremities and no focal motor deficits SENSORIUM/ORIENTATION: Yes alert, Yes oriented to person, Yes oriented to place and Yes oriented to time SPEECH: speech normal Psych: COMMON NORMALS: mental status grossly normal and cooperative Skin: COMMON NORMALS: no rashes or lesions noted GENERAL SKIN EXAM: no rashes or lesions noted Discharge Data Data Completed and Pending: Completed Studies During Hospitalization Category Date Time Status XR chest 1V tommie ble [id number] Stat Exams 09/15/19 04:34 Completed CV echo complete* [id number] Routine Ultrasound 09/15/19 13:42 Completed Pending at discharge Category Date Time Status Basic Metabolic P [place] AM LABS Lab 09/17/19 04:00 Ordered Basic Metabolic P [place] AM LABS Lab 09/18/19 04:00 Ordered Labs from last 24 hours 09/16/19 09/15/19 04:37 17:42 Sodium 134 L Potassium 3.6 Chloride 92 L Carbon Dioxide 30 H Anion Gap 15.6 BUN 11 Creatinine 0.8 GFR Calculation 105.5 Glucose 101 POC Glucose 179 Calcium 10.4 H Vitals: Last Vital Signs Temp 98.6 F 09/16/19 12:00 Pulse 76 09/16/19 12:00 Resp 16 09/16/19 12:00 BP 110/75 09/16/19 12:00 Pulse Ox 96 09/16/19 12:00 Discharge Plan Discharge Patient Disposition: Home, Self-Care Condition: Stable Prescriptions: Continued Adult Low Dose Aspirin 81 mg Tablet,Delayed Release (Dr/Ec) 81 mg PO DAILY RF: 0 Men's Multivitamin 400-20-300 mcg Tablet 1 tab PO RF: 0 Bystolic 2.5 mg Tablet 2.5 mg PO DAILY RF: 0 furosemide 40 mg Tablet 80 mg PO BID RF: 0 clopidogrel 75 mg Tablet 75 mg PO DAILY RF: 0 MagOx 400 mg (241.3 mg magnesium) Tablet 400 mg PO DAILY RF: 0 digoxin 125 mcg (0.125 mg) Tablet 125 mcg PO DAILY RF: 0 lisinopril 40 mg Tablet 40 mg PO DAILY RF: 0 rosuvastatin 20 mg Tablet 20 mg PO DAILY RF: 0 Dexilant 60 mg Capsule,Biphase Delayed Releas 60 mg PO DAILY RF: 0 Changed potassium chloride 10 mEq Tablet Extended Release 60 meq PO BID Qty: 0 RF: 0 Discharge Orders: Discharge Order (Routine); Ordered 09/16/19 Ordered By: Mary Lopez Referrals: Callie Palencia MD [Physician] - 4-7 days (Please call Wednesday to set up a follow up appointment) Rena Hook DO [Primary Care Provider] - 4-7 days (Please call Wednesday to set up a follow up appointment.) Discharge Diet: Low Salt Discharge Activity: Resume usual activity Patient Instructions: Metolazone (By mouth), Potassium Chloride (By mouth), Congestive Heart Failure Activity Restrictions/Additional Instructions: Lasix 80 mg twice daily Metolazone 2.5 mg twice daily, stop on Wednesday and call Dr. Palencia's office for further recommendations Increase potassium to 60 mEq twice daily Stand Alone Forms: Work/Release Restrictions Discharge Date/Time: 09/16/19 14:12 Discharge Attestations Time Spent in Discharge Care*: greater than 30 min Quality Metrics Clinical Quality Measures During this hospital stay, did patient experience: None Coding Level of Care Code Acute Continuum Of Care Manager for Maki Fwd Exam Problem Focused Diagnoses Congestive heart failure I50.9 Hypertension I10 Coronary artery disease I25.10
--- NOTE | 2019-09-16 13:25 | PM.PN ---
Subjective Subjective: Interval history: feeling better today. He has diuresed well but metolazone. Denies any chest pain. Shortness of breath has also improved. Vitals/I&O/Wt Last Vital Signs Temp 98.6 F 09/16/19 12:00 Pulse 76 09/16/19 12:00 Resp 16 09/16/19 12:00 BP 110/75 09/16/19 12:00 Pulse Ox 96 09/16/19 12:00 09/15/19 09/16/19 09/16/19 22:59 06:59 14:59 Intake Total 1720 / 1720 240 / 240 Output Total 700 / 700 3600 / 4300 Balance 1020 / 1020 -3600 / -2580 240 / 240 Weight last 48 hrs Weight 270 lb 12.8 oz Weight 270 lb Physical Exam Narrative: EXAM NARRATIVE: GENERAL: Patient is alert, awake and oriented x3. NECK: No jugular vein distension. HEENT: No cyanosis. No icterus. No pallor. HEART: Regular S1 and S2. No murmur, rub or gallop. LUNGS: Clear to auscultate bilaterally. ABDOMEN: Soft, nontender and nondistended. Positive bowel sounds. No guarding, rebound or tenderness. CENTRAL NERVOUS SYSTEM: Grossly nonfocal. EXTREMITIES: Lower extremities with trace edema bilaterally. A&P Assessment and plan (1) Congestive heart failure: he would like to go home he is breathing better. He has diuresed adequately overnight. Patient has been instructed to use metolazone 2.5 mg twice a day for 1 more day continue to use 80 mg by mouth twice a day of Lasix increase potassium chloride to 60 meq twice a day until they use metolazone after that reduced potassium chloride to 40 meq bid . Status: Acute Qualifiers: Heart failure type: systolic Code(s): I50.9 - Heart failure, unspecified (2) Hypertension: Well controlled continue medicine Status: Acute Qualifiers: Hypertension type: essential hypertension Qualified Code(s): I10 - Essential (primary) hypertension Code(s): I10 - Essential (primary) hypertension (3) Coronary artery disease: denies any chest pain. Most likely pain was atypical and secondary to volume overload. 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
== END 2019-09-16 14:12 | disposition home or self-care (01) ==
LOC: ER 10:03 → MEDSURG 10:27
PROVIDERS: Emergency Medicine; Admitting Provider Family Medicine; Emergency Provider Family Medicine; Family Provider Family Medicine; PCP Family Medicine; Visit Provider Family Medicine
DX: I11.0 Hypertensive heart disease with heart failure (principal); I50.9 Heart failure, unspecified; I25.10 Atherosclerotic heart disease of native coronary artery without angina pectoris; G47.33 Obstructive sleep apnea (adult) (pediatric); Z79.82 Long term (current) use of aspirin; Z82.49 Family history of ischemic heart disease and other diseases of the circulatory system; Z87.891 Personal history of nicotine dependence; R07.89 Other chest pain; Z79.02 Long term (current) use of antithrombotics/antiplatelets
CPT/HCPCS: 36415; 36416; 71045; 80048; 80053; 82962; 83880; 84484; 85025; 93005; 93306; 94660; 96360; 96361; 96372; 96375; 99283; 99285; G0378; J1650; J1940; J7030

== ENCOUNTER → 2019-09-18 11:20 | Outpatient (BNVA) | payer BC, SELFPAY | PROVIDERS: Family Provider Family Medicine; PCP Family Medicine; Visit Provider Internal Medicine Cardiovascular Disease | DX: I10 Essential (primary) hypertension (principal) | CPT/HCPCS: 80048 ==

== ENCOUNTER 2019-09-20 11:33 | Observation (INO) | payer BC, SELFPAY ==
[2019-09-20] VITALS (15 sets, daily range): BP systolic 116–158; BP diastolic 48–108; PULSE 71–92; RESP 11–20; TEMP 36.7–37.1; O2SAT 92–98; BMI 42.5
--- NOTE | 2019-09-20 12:00 | ED_ITS ---
Entered by Rubia Smith, acting as scribe for HPI - SOB/Dyspnea General: Chief Complaint: Shortness of Breath/Dyspnea Stated Complaint: Extreme SOB light headed Time Seen by Provider: 09/20/19 11:58 Source: patient Mode of arrival: ambulatory Limitations: no limitations History of Present Illness: HPI Narrative: 43 yo Male presents to ED with complaint of shortness of breath. Pt states that this started last night and has gotten worse today. Pt states that Dr. Palencia put him on metolazone that depletes his potassium so he had stopped it but was told to start taking it again yesterday. Pt states that he has gotten light headed and nauseated. MD elicited complaint: shortness of breath Onset (ago): day(s) (last night) Context: other (new medication) Timing: progressively worsening Severity: mild Exacerbating factors: recent new medication Relieving factors: nothing Associated symptoms: Reports dizziness, lightheadedness, nausea and vomiting; Deny chest congestion, diaphoresis, extremity pain, fever(s), hemoptysis or polydipsia Related Data: Home oxygen amount: none Review of Systems General: Reports: other (negative unless marked) Const: Denies: fever, chills, body aches, fatigue, malaise or diaphoresis Eyes: Denies: change in vision or blurry vision ENMT: Denies: throat pain, painful swallowing, hoarseness, ear pain, ear discharge, Change in hearing or nasal discharge Card: Reports: swelling of feet/ankles, lightheadedness and shortness of breath on exertion Resp: Denies: shortness of breath, productive cough, non-productive cough, wheezing, coughing up blood or chest congestion GI: Reports: nausea and vomiting : Denies: flank pain, difficulty urinating, painful urination, urinary frequency, urinary urgency, decreased urine ouput, urinary incontinence or blood in urine Musc: Denies: neck pain, back pain, extremity pain, extremity swelling, joint pain, joint swelling, joint warmth or joint stiffness Skin/Breast: Denies: rash, skin tenderness or yellow skin Neuro: Reports: dizziness Endo: Denies: excessive thirst, tired all the time, cold intolerance, excessive sweating, flushing or hot flashes Uziel/Lymph: Denies: easy bruising, easy bleeding, petechiae or enlarged lymph nodes All/Imm: Denies: hives, throat swelling, tongue swelling, facial swelling or acute wheezing PFSH ED PFSH: Statuses (acute, chronic, etc) shown below reflect problem list status as previously entered and may not be historically accurate Medical History Congestive heart failure (Acute) Improved acute CHF exacerbation Discharged with Lasix 80 mg twice daily Discharged with metolazone 2.5 mg twice daily until Wednesday Call cardiology office at that time for further instructions Coronary artery disease (Acute) Continue to follow-up with cardiology as scheduled. Chest pain and shortness of breath related to acute CHF exacerbation Hypertension (Acute) Continue with lisinopril, Lasix, digoxin, Bystolic as previously prescribed Obstructive sleep apnea (Acute) Surgical History Hx of cardiac cath (Acute) Hx of cholecystectomy (Acute) Family History Mother CAD (coronary artery disease) Father Stroke Social History Smoking and tobacco status: never smoked Alcohol intake: never Physical Exam Const: COMMON NORMALS: no apparent distress, oriented x3, no limitations, healthy appearing and well nourished EXAM LIMITATIONS: no altered mental status GENERAL APPEARANCE: cooperative, well kempt and well developed ORIENTATION/CONSCIOUSNESS: Yes awake HENMT: COMMON NORMALS: normocephalic, head/scalp atraumatic, hearing grossly normal bilaterally, external ears normal, EAC's normal, external nose normal and moist oral mucous membranes HEAD & SCALP: normal to inspection, normocephalic and atraumatic FACE & SINUS: normal facial exam and face symmetric NOSE: external nose normal and nares normal EXTERNAL EAR: Yes external ears normal EXTERNAL AUDITORY CANAL: EAC's normal MOUTH: oral and palatal mucosa normal and tongue normal Eye: COMMON NORMALS: PERRL, EOMs intact bilaterally, conjunctivae normal and no scleral icterus GENERAL EYE: normal appearance of both eyes and normal light reflex CONJUNCTIVA: Yes conjunctivae normal SCLERA: sclerae normal CORNEA: Yes corneas normal PUPIL: Yes PERRL DIRECT OPHTHALMOSCOPY: Yes normal light reflex Neck/C-Spine: COMMON NORMALS: full ROM, no lymphadenopathy, supple, no meningeal signs and no JVD GENERAL: Yes normal visual inspection and Yes trachea midline CERVICAL SPINE: Yes cervical ROM normal Chest: COMMONS NORMALS: inspection of chest normal and palpation of chest normal Resp: COMMON NORMALS: normal respiratory effort, no retractions, no use of accessory muscles and clear to auscultation bilaterally EFFORT & INSPECTION: Yes able to speak in complete sentences AUSCULTATION: clear to auscultation bilaterally Cardio: COMMON NORMALS: no JVD, regular rate, regular rhythm, S1 normal heart sound, S2 normal heart sound, no gallops, no clicks, no murmurs and no rub JUGULAR VENOUS DISTENTION: no JVD RATE: regular rate RHYTHM: regular rhythm HEART SOUNDS: S1 normal and S2 normal GI: COMMON NORMALS: soft to palpation, non-tender, no hepatosplenomegaly and no masses INSPECTION: Yes normal to inspection PALPATION: Yes soft and Yes no hepatosplenomegaly : COMMON NORMALS: Yes no CVA tenderness BLADDER/KIDNEY EXAM: Yes no CVA tenderness Back/Pelvis: COMMON NORMALS: no CVA tenderness, thoracic and lumbar spine normal to inspection, no thoracic nor lumbar tenderness and thoraco-lumbar ROM normal Extremity: COMMON NORMALS: normal to inspection, full ROM, normal capillary refill, no joint enlargement, no clubbing, cyanosis or edema and no calf tenderness Neuro: COMMON NORMALS: oriented x3, CN's II-XII intact bilaterally, moves all extremities, no focal motor deficits and no sensory deficits noted MENINGEAL SIGNS: Yes no meningeal signs Psych: COMMON NORMALS: mental status grossly normal, thought process normal, cooperative, affect normal, speech normal and activity/motor behavior normal APPEARANCE: Yes well kempt SPEECH: Yes normal speech THOUGHT PROCESS: normal thought process Skin: COMMON NORMALS: no rashes or lesions noted, skin turgor normal, no jaundice, no petechiae and no mottling GENERAL SKIN EXAM: no rashes or lesions noted and turgor normal Course Vital Signs: Vital signs: Vital Signs Temperature 98.0 F 09/20/19 11:42 Pulse Rate 74 09/20/19 13:27 Respiratory Rate 17 09/20/19 13:27 Blood Pressure 121/63 09/20/19 13:27 Pulse Oximetry 92 09/20/19 13:27 MDM - SOB/Dyspnea MDM Narrative: Medical decision making narrative: The case was reviewed with Dr. Winter, he will admit the patient for definitive evaluation with cardiac cath. Currently the patient is asymptomatic. Differential Diagnosis: Shortness of Breath Differential Diagnosis: Likely acute exacerbation of chronic obstructive airways disease, congestive heart fail ure, community acquired pneumonia and pulmonary embolism Lab Data: Attestation: I reviewed the patient's lab results. Labs: Lab Results 09/20/19 09/20/19 09/20/19 Range/Units 12:10 12:10 12:10 WBC 13.6 H (4.0-10.0) 10^3/ uL RBC 5.26 (4.1-5.3) 10^6/u L Hgb 14.6 (11.7-16.6) g/dL Hct 43.2 (42.0-52.0) % MCV 82.1 (80-94) fL MCH 27.8 L (28.0-34.0) pg MCHC 33.8 (30.0-36.0) g/dL RDW 12.2 (12.1-15.1) % Plt Count 309 (130-400) 10^3/c mm MPV 10.8 H (7.4-10.4) fL Neut % (Auto) 77.4 % Lymph % (Auto) 14.2 % [place] % (Auto) 7.5 % Eos % (Auto) 0.1 % Baso % (Auto) 0.4 % Neut # (Auto) 10.5 H (1.8-7.7) 10^3/u L Lymph # (Auto) 1.9 (0.8-4.8) 10^3/u L [place] # (Auto) 1.0 H (0.2-0.9) 10^3/u L Eos # (Auto) 0.0 (0.0-0.8) 10^3/u L Baso # (Auto) 0.1 (0.0-0.1) 10^3/u L Nucleated RBC % (a uto) 0 % Nucleated RBCs # 0.0 /100WBC PT 13.70 H (10.5-13.3) SECO NDS INR 1.02 (0.8-1.2) APTT 25.6 (23.9-36.7) SECO NDS D-Dimer (0-0.59) ug/mIFE U Sodium 130 L (136-145) mmol/L Potassium 3.4 L (3.5-5.1) mmol/L Chloride 89 L (98-107) mmol/L Carbon Dioxide 27 (22-29) mmol/L Anion Gap 17.4 (5-19) BUN 21 H (6-20) mg/dL Creatinine 1.2 (0.7-1.2) mg/dL GFR Calculation 66.1 L (90-130) mL/min Glucose 110 H (74-109) mg/dL Calcium 11.0 H (8.6-10.0) mg/Dl Magnesium (1.7-2.3) mg/dL Total Bilirubin 0.4 (0.15-1.2) mg/dL AST 31 (0-40) U/L ALT 52 H (0-41) U/L Alkaline Phosphata se 144 H (40-130) IU/L Troponin T Baselin e (0-15) ng/mL Troponin T 120 Min [place] (0-15) ng/mL NT-Pro-B Natriuret Pep 20 (0-125) pg/mL Total Protein 8.0 (6.6-8.7) g/dL Albumin 4.6 (3.5-5.2) g/dL Globulin 3.4 (1.3-4.6) g/dL Urine Color (Yellow) Urine Appearance (CLEAR) Urine pH (5-7) Ur Specific Gravit y (1.005-1.030) Urine Protein (Negative) Urine Glucose (UA) (Normal) Urine Ketones (Negative) Urine Occult Blood (Negative) Urine Nitrate (Negative) Urine Bilirubin (NEGATIVE) Urine Urobilinogen (Negative) mg/dL Ur Leukocyte [place] ase (Negative) Urine RBC (0-2) /hpf Urine WBC (0-5) /hpf Ur Squamous Epith Cells (0-5) Urine Bacteria (NONE) Hyaline Casts Urine Mucus 09/20/19 09/20/19 09/20/19 Range/Units 12:10 12:10 12:10 WBC (4.0-10.0) 10^3/ uL RBC (4.1-5.3) 10^6/u L Hgb (11.7-16.6) g/dL Hct (42.0-52.0) % MCV (80-94) fL MCH (28.0-34.0) pg MCHC (30.0-36.0) g/dL RDW (12.1-15.1) % Plt Count (130-400) 10^3/c mm MPV (7.4-10.4) fL Neut % (Auto) % Lymph % (Auto) % [place] % (Auto) % Eos % (Auto) % Baso % (Auto) % Neut # (Auto) (1.8-7.7) 10^3/u L Lymph # (Auto) (0.8-4.8) 10^3/u L [place] # (Auto) (0.2-0.9) 10^3/u L Eos # (Auto) (0.0-0.8) 10^3/u L Baso # (Auto) (0.0-0.1) 10^3/u L Nucleated RBC % (a uto) % Nucleated RBCs # /100WBC PT (10.5-13.3) SECO NDS INR (0.8-1.2) APTT (23.9-36.7) SECO NDS D-Dimer 0.32 (0-0.59) ug/mIFE U Sodium (136-145) mmol/L Potassium (3.5-5.1) mmol/L Chloride (98-107) mmol/L Carbon Dioxide (22-29) mmol/L Anion Gap (5-19) BUN (6-20) mg/dL Creatinine (0.7-1.2) mg/dL GFR Calculation (90-130) mL/min Glucose (74-109) mg/dL Calcium (8.6-10.0) mg/Dl Magnesium 2.0 (1.7-2.3) mg/dL Total Bilirubin (0.15-1.2) mg/dL AST (0-40) U/L ALT (0-41) U/L Alkaline Phosphata se (40-130) IU/L Troponin T Baselin e 8 (0-15) ng/mL Troponin T 120 Min [place] (0-15) ng/mL NT-Pro-B Natriuret Pep (0-125) pg/mL Total Protein (6.6-8.7) g/dL Albumin (3.5-5.2) g/dL Globulin (1.3-4.6) g/dL Urine Color (Yellow) Urine Appearance (CLEAR) Urine pH (5-7) Ur Specific Gravit y (1.005-1.030) Urine Protein (Negative) Urine Glucose (UA) (Normal) Urine Ketones (Negative) Urine Occult Blood (Negative) Urine Nitrate (Negative) Urine Bilirubin (NEGATIVE) Urine Urobilinogen (Negative) mg/dL Ur Leukocyte [place] ase (Negative) Urine RBC (0-2) /hpf Urine WBC (0-5) /hpf Ur Squamous Epith Cells (0-5) Urine Bacteria (NONE) Hyaline Casts Urine Mucus 09/20/19 09/20/19 Range/Units 13:48 14:02 WBC (4.0-10.0) 10^3/ uL RBC (4.1-5.3) 10^6/u L Hgb (11.7-16.6) g/dL Hct (42.0-52.0) % MCV (80-94) fL MCH (28.0-34.0) pg MCHC (30.0-36.0) g/dL RDW (12.1-15.1) % Plt Count (130-400) 10^3/c mm MPV (7.4-10.4) fL Neut % (Auto) % Lymph % (Auto) % [place] % (Auto) % Eos % (Auto) % Baso % (Auto) % Neut # (Auto) (1.8-7.7) 10^3/u L Lymph # (Auto) (0.8-4.8) 10^3/u L [place] # (Auto) (0.2-0.9) 10^3/u L Eos # (Auto) (0.0-0.8) 10^3/u L Baso # (Auto) (0.0-0.1) 10^3/u L Nucleated RBC % (a uto) % Nucleated RBCs # /100WBC PT (10.5-13.3) SECO NDS INR (0.8-1.2) APTT (23.9-36.7) SECO NDS D-Dimer (0-0.59) ug/mIFE U Sodium (136-145) mmol/L Potassium (3.5-5.1) mmol/L Chloride (98-107) mmol/L Carbon Dioxide (22-29) mmol/L Anion Gap (5-19) BUN (6-20) mg/dL Creatinine (0.7-1.2) mg/dL GFR Calculation (90-130) mL/min Glucose (74-109) mg/dL Calcium (8.6-10.0) mg/Dl Magnesium (1.7-2.3) mg/dL Total Bilirubin (0.15-1.2) mg/dL AST (0-40) U/L ALT (0-41) U/L Alkaline Phosphata se (40-130) IU/L Troponin T Baselin e (0-15) ng/mL Troponin T 120 Min [place] 8.59 (0-15) ng/mL NT-Pro-B Natriuret Pep (0-125) pg/mL Total Protein (6.6-8.7) g/dL Albumin (3.5-5.2) g/dL Globulin (1.3-4.6) g/dL Urine Color Yellow (Yellow) Urine Appearance Clear (CLEAR) Urine pH 5 (5-7) Ur Specific Gravit y 1.015 (1.005-1.030) Urine Protein Trace (Negative) Urine Glucose (UA) Norm (Normal) Urine Ketones 1+ H (Negative) Urine Occult Blood Neg (Negative) Urine Nitrate Negative (Negative) Urine Bilirubin Neg (NEGATIVE) Urine Urobilinogen Norm (Negative) mg/dL Ur Leukocyte [place] ase Negative (Negative) Urine RBC None (0-2) /hpf Urine WBC 0-4 H (0-5) /hpf Ur Squamous Epith Cells None (0-5) Urine Bacteria None (NONE) Hyaline Casts 5-10 H Urine Mucus 2+ Imaging Data^: CXR: Radiologist's impression: [address] [address] XRay Report Signed Patient: Giuliano Batres #: [id number] : 1975Acct#:[id number] Age/Sex: 43 / MADM Date: 09/20/19 Loc: ERRoom/Bed: Attending Dr: Ordering Provider/Ordering MD: Radha Manrique DO Date of Service: 09/20/19 Procedure(s): XR chest 1V portable [id number] Accession Number(s): [id number] Report Number: [id number] PROCEDURE INFORMATION: Exam: XR Chest, 1 View Exam date and time: 09/20/2019 12:29 PM Age: 43 years old Clinical indication: Dyspnea; Patient HX: Dizzy vomiting pain ? medication reaction TECHNIQUE: Imaging protocol: XR of the chest Views: 1 view. COMPARISON: CR XR chest 1V portable [id number] 09/15/2019 4:43 AM FINDINGS: Lungs: Unremarkable. No consolidation. Noncalcified density right upper lobe measuring 9.3 mm. This finding was present on prior examination and appears similar. Pleural space: Unremarkable. No pleural effusion. No pneumothorax. Heart/Mediastinum: Unremarkable. No cardiomegaly. Bones/joints: Unremarkable. XR/XR chest 1V portable [id number] IMPRESSION: No acute findings. Right upper lobe granuloma Dictated By:Bernabe Ohara Signed By:Nayely Ohara Date/Time:09/20/191314 DD/ 1314 EKG Data^: EKG 1: Attestation: I personally reviewed and interpreted this EKG as follows: (EKG performed and read at 1151?normal sinus rhythm at 79 beats a minute, nonspecific ST and T wave changes, incomplete right bundle branch block, similar to previous) EKG 2: Attestation: I personally reviewed and interpreted this EKG as follows: (EKG performed and read at 1241?normal sinus rhythm at 75 beats a minute, incomplete right bundle branch block, nonspecific ST-T wave changes, unchanged from previous) EKG 3: Attestation: I personally reviewed and interpreted this EKG as follows: (EKG performed and read at 1418?normal sinus rhythm at 72 beats a minute, incomplete right bundle branch block, nonspecific ST-T wave changes, unchanged from previous) Discharge Plan Discharge Prescriptions: No Action Adult Low Dose Aspirin 81 mg Tablet,Delayed Release (Dr/Ec) 81 mg PO DAILY RF: 0 Men's Multivitamin 400-20-300 mcg Tablet 1 tab PO RF: 0 Bystolic 2.5 mg Tablet 2.5 mg PO DAILY RF: 0 furosemide 40 mg Tablet 80 mg PO BID RF: 0 clopidogrel 75 mg Tablet 75 mg PO DAILY RF: 0 MagOx 400 mg (241.3 mg magnesium) Tablet 400 mg PO DAILY RF: 0 digoxin 125 mcg (0.125 mg) Tablet 125 mcg PO DAILY RF: 0 lisinopril 40 mg Tablet 40 mg PO DAILY RF: 0 rosuvastatin 20 mg Tablet 20 mg PO DAILY RF: 0 Dexilant 60 mg Capsule,Biphase Delayed Releas 60 mg PO DAILY RF: 0 potassium chloride 10 mEq Tablet Extended Release 60 meq PO BID Qty: 0 RF: 0 Coding Level of Care Code ED Associate Dean for Chg Fwd Exam Problem Focused The documentation recorded by the Sarah baez Carmen, accurately reflects the service I personally performed and the decisions made by Hilaria mulligan Eli N Sep 20, 2019 11:33
--- NOTE | 2019-09-20 12:02 | ECG_ITS ---
Measurements Intervals [place] Rate: 75 P: 48 VA: 157 QRS: 26 QRSD: 126 T: 52 QT: 447 QTc: 500 SINUS RHYTHM POSSIBLE RIGHT VENTRICULAR CONDUCTION DELAY [RSR (QR) IN V1/V2] PROLONGED QT INTERVAL Compared to ECG 09/15/2019 10:40:41 Prolonged QT interval now present Intraventricular conduction delay no longer present Electronically Signed On 09-20-2019 20:12:33 ADDICTION MEDICINE PHYSICIAN by Callie Palencia M.D. [email or web address] f
--- NOTE | 2019-09-20 12:02 | XRR_ITS ---
PROCEDURE INFORMATION: Exam: XR Chest, 1 View Exam date and time: 09/20/2019 12:29 PM Age: 43 years old Clinical indication: Dyspnea; Patient HX: Dizzy vomiting pain ? medication reaction TECHNIQUE: Imaging protocol: XR of the chest Views: 1 view. COMPARISON: CR XR chest 1V portable [id number] 09/15/2019 4:43 AM FINDINGS: Lungs: Unremarkable. No consolidation. Noncalcified density right upper lobe measuring 9.3 mm. This finding was present on prior examination and appears similar. Pleural space: Unremarkable. No pleural effusion. No pneumothorax. Heart/Mediastinum: Unremarkable. No cardiomegaly. Bones/joints: Unremarkable. XR/XR chest 1V portable [id number] IMPRESSION: No acute findings. Right upper lobe granuloma
--- NOTE | 2019-09-20 12:20 | PC.NURSE ---
portable xray at bedside
[2019-09-20 12:22] LABS: Basophils # 0.1 10^3/uL (0.0-0.1); Basophils % 0.4 %; Eosinophils % 0.1 %; Hematocrit 43.2 % (42.0-52.0); Hemoglobin 14.6 g/dL (11.7-16.6); Lymphocytes # 1.9 10^3/uL (0.8-4.8); Lymphocytes % 14.2 %; Mean Corpuscular HGB Conc 33.8 g/dL (30.0-36.0); Mean Corpuscular Hemoglobin 27.8 pg (28.0-34.0); Mean Corpuscular Volume 82.1 fL (80-94); Mean Platelet Volume 10.8 fL (7.4-10.4); Monocytes % 7.5 %; Neutrophils # 10.5 10^3/uL (1.8-7.7); Neutrophils % 77.4 %; Nucleated Red Blood Cells % 0 %; Platelet Count 309 10^3/cmm (130-400); Red Blood Count 5.26 10^6/uL (4.1-5.3); Red Cell Distribution Width 12.2 % (12.1-15.1); White Blood Count 13.6 10^3/uL (4.0-10.0)
[2019-09-20 12:30] LABS: INR 1.02 (0.8-1.2)
[2019-09-20 12:31] LABS: Partial Thromboplastin Time 25.6 SECONDS (23.9-36.7)
[2019-09-20] MEDS: nitroglycerin 0.4 mg sublingual Tablet SUBLINGUAL (12:42)
[2019-09-20 12:45] LABS: Troponin(5th) Baseline 8 ng/mL (0-15)
[2019-09-20 12:53] LABS: Alanine Aminotransferase 52 U/L (0-41); Albumin Level 4.6 g/dL (3.5-5.2); Alkaline Phosphatase 144 IU/L (40-130); Anion Gap 17.4 (5-19); Aspartate Amino Transferase 31 U/L (0-40); Blood Urea Nitrogen 21 mg/dL (6-20); Carbon Dioxide 27 mmol/L (22-29); Chloride 89 mmol/L (98-107); Globulin 3.4 g/dL (1.3-4.6); Glomerular Filtration Rate 66.1 mL/min (90-130); Glucose 110 mg/dL (74-109); NT Pro B Type Natriuretic Pept 20 pg/mL (0-125); Potassium 3.4 mmol/L (3.5-5.1); Sodium 130 mmol/L (136-145); Total Bilirubin 0.4 mg/dL (0.15-1.2)
--- NOTE | 2019-09-20 14:02 | ECG_ITS ---
Measurements Intervals [place] Rate: 72 P: 47 IL: 152 QRS: 5 QRSD: 122 T: 35 QT: 442 QTc: 486 SINUS RHYTHM POSSIBLE RIGHT VENTRICULAR CONDUCTION DELAY [RSR (QR) IN V1/V2] PROLONGED QT INTERVAL INTERPRETATION BASED ON A DEFAULT AGE OF 40 YEARS Compared to ECG 09/15/2019 10:40:41 Prolonged QT interval now present Intraventricular conduction delay no longer present Electronically Signed On 09-20-2019 20:13:36 SUPERVISOR BILLPOSTING by Callie Palencia M.D. [id number] f
[2019-09-20 14:36] LABS: Troponin 5 2HR 8.59 ng/mL (0-15); Troponin 5 2HR Delta 0.59 ABS# (0-10)
[2019-09-20 14:41] LABS: D Dimer 0.32 ug/mIFEU (0-0.59)
[2019-09-20 14:46] LABS: Add Urine Microscopic? YES; Bilirubin Urine Neg (NEGATIVE); Blood Urine Neg (Negative); Glucose Urine UA Norm (Normal); Ketones Urine 1+ (Negative); Leukocyte Esterase Urine Negative (Negative); Nitrate Urine Negative (Negative); Protein Urine Trace (Negative); Specific Gravity, Urine 1.015 (1.005-1.030); Urine Appearance Clear (CLEAR); Urine Color Yellow (Yellow); Urobilinogen Urine Norm (Negative); pH Urine 5 (5-7)
[2019-09-20 15:01] LABS: Mucus Urine 2+; WBC Urine 0-4 /hpf (0-5)
--- NOTE | 2019-09-20 15:23 | PC.NURSE ---
pt refuses to put on patient gown.
--- NOTE | 2019-09-20 17:44 | PC.NURSE ---
attempted to call report-ICU nurse not able to take report at this time
--- NOTE | 2019-09-20 18:02 | ECG_ITS ---
Measurements Intervals [place] Rate: 79 P: 47 DE: 154 QRS: -1 QRSD: 122 T: 47 QT: 413 QTc: 474 SINUS RHYTHM POSSIBLE RIGHT VENTRICULAR CONDUCTION DELAY [RSR (QR) IN V1/V2] Compared to ECG 09/15/2019 10:40:41 Intraventricular conduction delay no longer present Electronically Signed On 09-20-2019 20:13:09 LOGISTICS PROGRAM MANAGER by Callie Palencia M.D. [email or web address]
--- NOTE | 2019-09-20 19:21 | PC.NURSE ---
RN called to give report to ICU nursing staff, was instructed that the room was not clean and they would call to get report when room was ready.
[2019-09-20 19:26] LABS: Troponin 5 6HR 6.81 ng/L (0-15); Troponin 5 6HR Delta -1.19 ng/L (0-12)
--- NOTE | 2019-09-20 19:30 | PM.HP ---
Providers/Chief Complaint Admitting Physician: Callie Palencia Primary Care Provider: Rena Hook DO Chief Complaint: Extreme SOB light headed History of Present Illness Giuliano Batres is a 43 year old male Past medical history significant for moderate left ventricle systolic dysfunction, history of ST elevation [place] status post drug-eluting stent to proximal LAD, history of Congestive heart failure , History of negative stress test few months ago who has been admitted twice in last one week and has many phone call and few recent visit to my clinic for worsening of shortness of breath heart failure symptoms and chest pressure despite optimal medical management. Last time he was discharged was 4 days ago when he was ruled out for acute coronary syndromeHis medications were adjusted and send home after diuresis. Patient did fine for 1 day but after that he started having worsening of shortness of breath despite of high dose of Lasix and chest pressures. This morning he went to his job and called me from there that he is having bad day he is very short of breath upon walking and having chest pain. He was immediately diverted towards emergency room. Initial cardiac markers and EKGs were negative for acute coronary syndrome however because of high suspicion for unstable angina he has been admitted for possible coronary angiogram due to his high-risk feature tomorrow Review of Systems Const: Denies: fever Eyes: Denies: change in vision Card: Reports: chest pain; Denies: palpitations or irregular heart rhythm Resp: Reports: shortness of breath Neuro: Denies: headache, numbness in extremities or weakness in extremities Psych: Denies: anxiety or depression Medications/Allergies Home Medications Medication Instructions Recorded Confirmed Last Taken Type fluticasone propionate [Flonase 1 spray INTRANASAL BID PRN 09/20/19 09/20/19 Unknown History Allergy Relief] metolazone 2.5 mg PO BID 09/20/19 09/20/19 09/20/19 History nitroglycerin [Nitrostat] 0.4 mg SUBLINGUAL Q5M PRN 09/20/19 09/20/19 09/20/19 History sucralfate 1 g PO QID 09/20/19 09/20/19 Unknown History Allergies Allergy/AdvReac Type Severity Reaction Status Date / Time No Known Allergies Allergy Verified 09/15/19 04:34 PFSH Acute PFSH: Statuses (acute, chronic, etc) shown below reflect problem list status as previously entered and may not be historically accurate Medical History (Updated 09/20/19 @ 19:52 by Callie Palencia MD) Congestive heart failure (Acute) Improved acute CHF exacerbation Discharged with Lasix 80 mg twice daily Discharged with metolazone 2.5 mg twice daily until Wednesday Call cardiology office at that time for further instructions Coronary artery disease (Acute) Continue to follow-up with cardiology as scheduled. Chest pain and shortness of breath related to acute CHF exacerbation Hypertension (Acute) Continue with lisinopril, Lasix, digoxin, Bystolic as previously prescribed Murmur (Acute) Obstructive sleep apnea (Acute) Surgical History Hx of cardiac cath (Acute) Hx of cholecystectomy (Acute) Family History Mother CAD (coronary artery disease) Father Stroke Social History Smoking and tobacco status: never smoked Alcohol intake: never Vitals/I&O/Wt Last Vital Signs Temp 98.0 F 09/20/19 11:42 Pulse 73 09/20/19 17:44 Resp 11 L 09/20/19 17:44 BP 134/64 09/20/19 17:44 Pulse Ox 95 09/20/19 17:44 Weight last 48 hrs Weight 280 lb Physical Exam Narrative: EXAM NARRATIVE: GENERAL: Patient is alert, awake and oriented x3. NECK: No jugular vein distension. HEENT: No cyanosis. No icterus. No pallor. HEART: Regular S1 and S2. 2/6 systolic murmur, rub or gallop. LUNGS: Clear to auscultate bilaterally. ABDOMEN: Soft, nontender and nondistended. Positive bowel sounds. No guarding, rebound or tenderness. CENTRAL NERVOUS SYSTEM: Grossly nonfocal. EXTREMITIES: Lower extremities with trace edema bilaterally. Pulses palpable in the lower extremities, both dorsalis pedis and posterior tibial. Data : 09/20/19 12:10 09/20/19 12:10 A&P Assessment and plan (1) Chest pain: Patient is high risk for acute coronary syndrome. He has history of ST elevation AL 3 years ago at that time he had a stent in proximal LAD. He has a negative stress test few months ago.. For the past couple months despite of optimization of medicine he continues to have symptoms and worsening of heart failure along with chest pressure. He has been admitted couple of time to the hospital and has visited my clinic. We would therefore recommend to proceed with left heart catheterization in the morning. Continue current regimen. Continue to monitor closely. I will hold metolazone. Continue beta dennis aspirin statin nitroglycerin and beta dennis Status: Acute Qualifiers: Chest pain type: unspecified Qualified Code(s): R07.9 - Chest pain, unspecified Code(s): R07.9 - Chest pain, unspecified (2) Coronary artery disease: Patient has extensive history of coronary artery disease. His chest pain suspicious for unstable angina. He has been scheduled for coronary angiogram tomorrow 10 AM Status: Acute Qualifiers: Coronary Disease-Associated Artery/Lesion type: iroquois artery Code(s): I25.10 - Atherosclerotic heart disease of iroquois coronary artery without angina pectoris (3) Hypertension: Well controlled continue medicine Status: Acute Qualifiers: Hypertension type: essential hypertension Qualified Code(s): I10 - Essential (primary) hypertension Code(s): I10 - Essential (primary) hypertension (4) Obstructive sleep apnea: On CPAP Status: Acute Code(s): G47.33 - Obstructive sleep apnea (adult) (pediatric) (5) Congestive heart failure: He is not volume overloaded but his shortness of breath is out of proportion from his heart failure therefore would like to rule out ischemic component. Status: Acute Qualifiers: Heart failure type: systolic Code(s): I50.9 - Heart failure, unspecified (6) Murmur: Patient has more pronounced systolic murmur I will ask for echocardiogram to rule out any structural problem. Status: Acute Code(s): R01.1 - Cardiac murmur, unspecified Attestations Medical Necessity Statement*: I'm not expecting his stay to cross more than 2 midnights. He is observation for now Coding Level of Care Code Acute Books Binder for Maki Dumont History Detailed Exam Detailed Medical Decision Making Moderate Complexity Diagnoses Chest pain R07.9 Chest pain type: unspecified Coronary artery disease I25.10 Coronary Disease-Associated Artery/Lesion type: iroquois artery Hypertension I10 Hypertension type: essential hypertension Obstructive sleep apnea G47.33 Congestive heart failure I50.9 Heart failure type: systolic Murmur R01.1
[2019-09-20 22:45] LABS: Anion Gap 16.3 (5-19); Blood Urea Nitrogen 17 mg/dL (6-20); Calcium 10.1 mg/Dl (8.6-10.0); Carbon Dioxide 27 mmol/L (22-29); Chloride 91 mmol/L (98-107); Glomerular Filtration Rate 92.1 mL/min (90-130); Glucose 132 mg/dL (74-109); Potassium 3.3 mmol/L (3.5-5.1); Sodium 131 mmol/L (136-145)
[2019-09-21] VITALS (33 sets, daily range): BP systolic 104–196; BP diastolic 63–109; PULSE 63–86; RESP 11–26; TEMP 36.8; O2SAT 91–97; BMI 42.5
[2019-09-21] MEDS: sodium chloride 0.9% 1,000 ML 100 ML IV (00:32)
--- NOTE | 2019-09-21 00:51 | PC.NURSE ---
patient came to icu floor via wheelchair from ER. patient in pleasant mood, no complaints of sob or chest pain on arrival. Patient alert and oriented, transferred self to bed.
--- NOTE | 2019-09-21 01:05 | ECG_ITS ---
Measurements Intervals [place] Rate: 75 P: 51 VA: 165 QRS: 12 QRSD: 123 T: 41 QT: 440 QTc: 493 SINUS RHYTHM MODERATE INTRAVENTRICULAR CONDUCTION DELAY [110+ ms QRS DURATION] PROLONGED QT INTERVAL WARNING: DATA QUALITY MAY AFFECT INTERPRETATION Compared to ECG 09/20/2019 14:18:48 Intraventricular conduction delay now present Electronically Signed On 09-21-2019 22:25:48 POT PUSHER by Idalia Kohler M.D. [email or web address]
--- NOTE | 2019-09-21 01:06 | ECG_ITS ---
Measurements Intervals [place] Rate: 70 P: 54 LA: 158 QRS: 30 QRSD: 112 T: 52 QT: 453 QTc: 490 SINUS RHYTHM MODERATE INTRAVENTRICULAR CONDUCTION DELAY [110+ ms QRS DURATION] PROLONGED QT INTERVAL Compared to ECG 09/20/2019 14:18:48 Intraventricular conduction delay now present Electronically Signed On 09-21-2019 22:24:02 DIESEL FLEET MECHANIC by Idalia Kohler M.D. [email or web address]
[2019-09-21 04:57] LABS: Basophils # 0.1 10^3/uL (0.0-0.1); Basophils % 0.6 %; Eosinophils # 0.2 10^3/uL (0.0-0.8); Eosinophils % 1.5 %; Hematocrit 40.5 % (42.0-52.0); Hemoglobin 13.7 g/dL (11.7-16.6); Lymphocytes # 2.6 10^3/uL (0.8-4.8); Mean Corpuscular HGB Conc 33.8 g/dL (30.0-36.0); Mean Corpuscular Volume 82.8 fL (80-94); Monocytes # 1.1 10^3/uL (0.2-0.9); Monocytes % 10.2 %; Neutrophils # 6.5 10^3/uL (1.8-7.7); Neutrophils % 62.4 %; Nucleated Red Blood Cells % 0 %; Platelet Count 265 10^3/cmm (130-400); Red Blood Count 4.89 10^6/uL (4.1-5.3); Red Cell Distribution Width 12.3 % (12.1-15.1); White Blood Count 10.4 10^3/uL (4.0-10.0)
[2019-09-21 05:23] LABS: Anion Gap 15.5 (5-19); Blood Urea Nitrogen 19 mg/dL (6-20); Carbon Dioxide 28 mmol/L (22-29); Chloride 92 mmol/L (98-107); Glomerular Filtration Rate 92.1 mL/min (90-130); Glucose 98 mg/dL (74-109); Potassium 3.5 mmol/L (3.5-5.1); Sodium 132 mmol/L (136-145)
[2019-09-21] MEDS: digoxin 125 mcg Tablet PO (08:27)
[2019-09-21] MEDS: clopidogrel 75 mg Tablet PO (08:27)
[2019-09-21] MEDS: aspirin 81 mg EC Tablet PO (08:28)
[2019-09-21] MEDS: lisinopril 20 mg Tablet 40 MG PO (08:30)
[2019-09-21] MEDS: magnesium oxide 400 mg tablet PO (08:39)
[2019-09-21] MEDS: diphenhydrAMINE 50 mg Capsule PO (09:16)
--- NOTE | 2019-09-21 10:42 | XACV_ITS ---
Exam Room: [facility] Ht: 173 cm Wt: 127 kg BSA: 2.53 m2 Gender: Male : 1975 Any Known Allergies: No known allergies Exam Priority: Routine Procedure(s): Procedure Description: Diagnostic procedure Diagnostic Cath Status: Urgent Diagnostic Findings LM has 0% stenosis. LAD has 0% stenosis. Patent previously placed proximal stent, no in-stent restenosis noted. CX has 0% stenosis. mRCA: Mild 30% stenosis, ZION: 3 flow. Coronary angiography shows right dominance. Conclusions There is mild coronary artery disease with one vessel disease. 43-year-old male who is well known to me through my clinic past medical history significant for history of ST elevation [place] status post PCI to proximal LAD, history of LV dysfunction recurrent and worsening of heart failure despite of maximal medical managment was admitted twice in the last one week with worsening of shortness of breath chest pain who had negative stress test few months ago underwent left heart catheterization. Recommendations Continue current medical management and risk factor modification. Diagnostic RX Recommendation: medical therapy and/or counseling Procedural Details Dr Palencia has another patient who is needing CATH. This patient will be taken off table and brought back at later time. Procedure Consent Obtained. Pre-Procedure Time Out. Identified patient by full name and date of as verbalized by the patient/guarantor. Does the consent match the physician's order: Yes. Accurate & Complete Informed Consent: Yes. Inpatient/Outpatient History & Physical on Chart: Yes. If H&P is completed, is and addenduem needed: No; If yes, is the addendum complete: N/A. Visualize and Verify Site with Patient/Guarantor: N/A. Relevant Radiology Images available: N/A. Pre-op teaching completed and patient verbalized understanding. The risks, benefits, and alternatives of sedation and/or procedure were discussed by physician. The patient agrees to continue. Procedure started. Correct patient, site and procedure confirmed by cath team. PERRLA. 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 Lungs clear x 5 lobes. IV Site on Arrival: 20 gauge in the left anticubital. IV Fluids: 0.9% NaCl at KVO. 0 mL infused prior to drop crew laborer. Pre Procedural Pulses: bilateral posterior tibial was 2+. Pre Procedural Pulses: bilateral dorsalis pedis was 2+. Pre Procedural Pulses: bilateral radial was 2+. Oxygen started at 2liters/min via nasal canula. Baseline sample Acquired. HR: 69 BPM. bilateral groins was prepped with chloroprep then draped in the usual sterile fashion. right radial was prepped with chloroprep then draped in the usual sterile fashion. Vital chart was stopped. I, the attending physician, have reviewed and verified all procedure medications. Yes, all medications given per verbal order History/Risk Factors Hypertension: Yes Dyslipidemia: No Peripheral Arterial Disease (PAD): No Myocardial Infarction (WI): Yes Obesity: No Renal Disease: No Prior Interventions PCI: Yes CABG: No Valve Surgery: No Date of PCI: 08/12/2016 Report Signatures Finalized by:Callie Palencia MD on 09/27/2019 11:48:59 AM
--- NOTE | 2019-09-21 12:43 | PC.NURSE ---
Orders received from Dr. Palencia to notify the ICU that the patients LHC would be postponed to 1630 today and that the patient could drink some juice or sprite if he needed, otherwise NPO. Mayela RN, in ICU was notified.
--- NOTE | 2019-09-21 14:31 | PC.CHAP ---
Pastoral Care Encounter/Spiritual Assessment Type of Contact [] Declined documentation improvement specialist visit [] Patient/Family/Request visit [] Outpatient visit [] Follow-up visit [] Physician referral [] Code/Alert [x] Routine visit [] Staff referral [] Actively dying [] Patient sleeping [] Family support [] [] Out of room [] Palliative care [] [] Receiving care in room [] Pre-surgical visit [] Trauma [] Long length of stay [x] ICU visit [] Other: Relational/Emotional Strength [x] Patient feels connected with others/family/visitors/staff [] Distress [] Loneliness/isolation [] Abandonment Spirituality of Patient [x] Person of Lizet [] Attends Zoroastrianism of their Lizet [] Believes in Prayer [] Reads Bible or Taoist materials [] There are Spiritual issues to be addressed Locomotive Driver Interventions [] Prayer [x] Active listening [x] Non-anxious presence [x] Spiritual/emotional support [] Crisis/trauma care [] Spiritual counseling [] Bereavement support [] Provided bereavement packet [] Provided Bible/devotional materials [] Provided toy/stuffed animal, coloring book to patient or family member [x] Completed spiritual assessment [] Provided Communion [] Anointing/[place] [] Salvation [] Other: Impact on Illness or Injury [] Angry [] Fearful [] Anxious [] Often cries [] Exhaustion [] Unable to work [] Unable to attend amish [] Unable to walk/stand [] Unable to read [] Unable to drive [] Unable to eat/drink [] Unable to sleep [] Unable to be with family [] Other: Summary Declined prayer demetria stated that alevism is praying for him. Time spent with patient 5 min
--- NOTE | 2019-09-21 18:57 | P.DS_ITS ---
Discharge Providers Date of Admission: 09/20/19 14:36 Date of Discharge: 09/26/19 Attending Provider at Admission: Callie Palencia Attending Provider at Discharge: Callie Palencia Primary Care Provider: Rena Hook DO Diagnoses at Discharge Discharge Diagnosis (1) Chest pain: Status: Acute Problem details: Resolved status post coronary angiogram which did not show any significant in- stent restenosis or any other significant [place] artery stenosis. Qualifiers: Chest pain type: unspecified Qualified Code(s): R07.9 - Chest pain, unspecified (2) Coronary artery disease: Status: Acute Problem details: Continue to follow-up with cardiology as scheduled. Chest pain and shortness of breath related to acute CHF exacerbation Qualifiers: Coronary Disease-Associated Artery/Lesion type: [place] artery (3) Hypertension: Status: Acute Problem details: Continue with lisinopril, Lasix, digoxin, Bystolic as previously prescribed Qualifiers: Hypertension type: essential hypertension Qualified Code(s): I10 - Essential (primary) hypertension (4) Obstructive sleep apnea: Status: Acute (5) Congestive heart failure: Status: Acute Problem details: Improved acute CHF exacerbation Discharged with Lasix 80 mg twice daily Call cardiology office at that time for further instructions Qualifiers: Heart failure type: systolic (6) Murmur: Status: Acute Reason for Visit Reason for Visit: Reason For Visit: Extreme SOB light headed Hospital Course Hospital Course: Patient was ruled out for acute coronary syndrome. He underwent left heart catheterization in the morning for worsening of shortness of breath and chest pain. He was found to have no significant obstructive disease including patent previously placed proximal LAD stent. LV gram shows Hyperdynamic left ventricular ejection fraction.Patient medications optimized. He will be discharged home. Most likely cause for new onset murmur is hyperdynamic left ventricle outflow tract.We will further titrate medicine to reduce dynamic outflow obstruction. Discharge Summary: Follow-up with Dr. Palencia as already scheduled. Physical Exam Narrative: EXAM NARRATIVE: GENERAL: Patient is alert, awake and oriented x3. NECK: No jugular vein distension. HEENT: No cyanosis. No icterus. No pallor. HEART: Regular S1 and S2. 2/6 systolic murmur, rub or gallop. LUNGS: Clear to auscultate bilaterally. ABDOMEN: Soft, nontender and nondistended. Positive bowel sounds. No guarding, rebound or tenderness. CENTRAL NERVOUS SYSTEM: Grossly nonfocal. EXTREMITIES: Lower extremities with trace edema bilaterally. Pulses palpable in the lower extremities, both dorsalis pedis and posterior tibial. Discharge Data Data Completed and Pending: Completed Studies During Hospitalization Category Date Time Status XR chest 1V tommie ble [id number] Stat Exams 09/20/19 12:02 Completed Pending at discharge Category Date Time Status MOUSE BREEDER request for service Routin e Exams 09/21/19 10:42 Ordered MOUSE BREEDER request for service Routin e Exams 09/21/19 16:22 Ordered Labs from last 24 hours 09/21/19 09/21/19 09/20/19 04:29 04:29 22:20 WBC 10.4 H RBC 4.89 Hgb 13.7 Hct 40.5 L MCV 82.8 MCH 28.0 MCHC 33.8 RDW 12.3 Plt Count 265 MPV 11.0 H Neut % (Auto) 62.4 Lymph % (Auto) 25.0 Christian % (Auto) 10.2 Eos % (Auto) 1.5 Baso % (Auto) 0.6 Neut # (Auto) 6.5 Lymph # (Auto) 2.6 Christian # (Auto) 1.1 H Eos # (Auto) 0.2 Baso # (Auto) 0.1 Nucleated RBC % (a uto) 0 Nucleated RBCs # 0.0 Sodium 132 L 131 L Potassium 3.5 3.3 L Chloride 92 L 91 L Carbon Dioxide 28 27 Anion Gap 15.5 16.3 BUN 19 17 Creatinine 0.9 0.9 GFR Calculation 92.1 92.1 Glucose 98 132 H Calcium 10.0 10.1 H Troponin I 6 Hour Troponin I Hi Sens Del 09/20/19 18:32 WBC RBC Hgb Hct MCV MCH MCHC RDW Plt Count MPV Neut % (Auto) Lymph % (Auto) Christian % (Auto) Eos % (Auto) Baso % (Auto) Neut # (Auto) Lymph # (Auto) Christian # (Auto) Eos # (Auto) Baso # (Auto) Nucleated RBC % (a uto) Nucleated RBCs # Sodium Potassium Chloride Carbon Dioxide Anion Gap BUN Creatinine GFR Calculation Glucose Calcium Troponin I 6 Hour 6.81 Troponin I Hi Sens Del -1.19 L Vitals: Last Vital Signs Temp 98.2 F 09/21/19 04:00 Pulse 69 09/21/19 11:00 Resp 15 09/21/19 11:00 BP 130/79 09/21/19 18:00 Pulse Ox 95 09/21/19 11:00 Discharge Plan Discharge Patient Disposition: Home, Self-Care Condition: Stable Prescriptions: Continued aspirin [Adult Low Dose Aspirin] 81 mg Tablet,Delayed Release (Dr/Ec) 81 mg PO DAILY RF: 0 Men's Multivitamin 400-20-300 mcg Tablet 1 tab PO DAILY RF: 0 Bystolic 2.5 mg Tablet 2.5 mg PO DAILY RF: 0 clopidogrel 75 mg Tablet 75 mg PO DAILY RF: 0 magnesium oxide [MagOx] 400 mg (241.3 mg magnesium) Tablet 400 mg PO DAILY RF: 0 digoxin 125 mcg (0.125 mg) Tablet 125 mcg PO DAILY RF: 0 rosuvastatin 20 mg Tablet 20 mg PO DAILY RF: 0 Dexilant 60 mg Capsule,Biphase Delayed Releas 60 mg PO DAILY RF: 0 sucralfate 1 gram tablet 1 g PO QID RF: 0 Nitrostat 0.4 mg Tablet, Sublingual 0.4 mg SUBLINGUAL Q5M PRN (Reason: Chest Pain) RF: 0 Bystolic 2.5 mg tablet 2.5 mg PO DAILY RF: 0 potassium chloride 10 mEq tablet extended release 40 meq PO BID RF: 0 Changed furosemide 40 mg Tablet 40 mg PO BID Qty: 0 RF: 0 lisinopril 40 mg Tablet 20 mg PO DAILY Qty: 0 RF: 0 No Action amoxicillin-pot clavulanate [Augmentin] 875-125 mg tablet 1 tab PO BID 7 Days Qty: 14 RF: 0 Discharge Orders: Discharge Order (Routine); Ordered 09/21/19 Ordered By: Callie Palencia Discharge Diet: Regular Activity Restrictions/Additional Instructions: No lifting with right and for next 24 hours. Patient can return home tonight. Stand Alone Forms: Work/Release Restrictions Discharge Date/Time: 09/21/19 20:50 Discharge Attestations Time Spent in Discharge Care*: greater than 30 min Quality Metrics Clinical Quality Measures During this hospital stay, did patient experience: None Coding Level of Care Code Acute Software Recruiter for Maki Fwpalmira Diagnoses Chest pain R07.9 Chest pain type: unspecified Coronary artery disease I25.10 Coronary Disease-Associated Artery/Lesion type: [place] artery Hypertension I10 Hypertension type: essential hypertension Obstructive sleep apnea G47.33 Congestive heart failure I50.9 Heart failure type: systolic Murmur R01.1
== END 2019-09-21 20:50 | disposition home or self-care (01) ==
LOC: ER 14:54 → ICU 18:46
PROVIDERS: Admitting Provider Internal Medicine Cardiovascular Disease; Emergency Provider Emergency Medicine; Family Provider Family Medicine; PCP Family Medicine; Visit Provider Internal Medicine Cardiovascular Disease
DX: I25.10 Atherosclerotic heart disease of native coronary artery without angina pectoris (principal); R07.9 Chest pain, unspecified; G47.33 Obstructive sleep apnea (adult) (pediatric); I11.0 Hypertensive heart disease with heart failure; I50.20 Unspecified systolic (congestive) heart failure; R01.1 Cardiac murmur, unspecified; I25.2 Old myocardial infarction; Z82.49 Family history of ischemic heart disease and other diseases of the circulatory system; Z82.3 Family history of stroke
CPT/HCPCS: 12345; 36415; 71045; 80048; 80053; 81003; 83735; 83880; 84484; 85025; 85378; 85610; 85730; 93005; 93452; 94660; 96360; 99284; 99285; A9270; C1769; C1887; C1894; G0378; J1644; J2001; J2250; J3010; J3490; J7030; Q0163; Q9967

== ENCOUNTER 2020-01-02 05:48 | Day surgery (SDC) | payer BC, SELFPAY ==
[2020-01-01 13:46] VITALS: BMI 47.0
[2020-01-02 06:15] VITALS: BP 151/80; PULSE 71; RESP 16; TEMP 36.3; O2SAT 96
[2020-01-02] MEDS: CELEcoxib 200 mg Capsule 400 MG PO (06:33)
[2020-01-02] MEDS: sodium chloride 0.9% 1,000 ML 30 ML IV (06:33)
--- NOTE | 2020-01-02 06:33 | P.ANESASSM_ITS ---
Pre-Anesthetic Assessment Pre-Anesthetic Assessment: Height/Weight: Height 1.7 m Weight 136.078 kg Preop Diagnosis: Right Carpal Tunnel Syndrome Proposed Procedure: Operation Date: 01/02/20 07:35 Proposed Procedures p Carpal Tunnel Release 16537 G56.03(Right) - Valerie Soriano MD Familial anesthetic complications: None Was Beta Acndido taken within 24 hours: Yes Last intake: Intake Last Liquid Date 01/02/20 Last Liquid Time 05:00 Last Solid Date 01/01/20 Last Solid Time 20:00 Social: Social History: Tobacco and No alcohol Packs per day: 0.5 ppd Exam: Pre-Anes Outpt Exam: alert, oriented x 3, clear to auscultation bilaterally and regular rate & rhythm Airway: Cervical ROM: WNL MP: 4 Dentition: False Additional comments: large neck circumerference Pulmonary: Pulmonary: Sleep apnea (cpap (Severe)) CV/HEM: CV/HEM: CAD, HTN and SC (2016 (stents)) Comments: > 4 METS (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 ) : : None reported Hepatic: Hepatic: None reported GI: GI: GERD Comments: stefanie's esophagus No current GERD symptoms this morning Metabolic: Metabolic: Hyperlipidemia and Morbid obesity Musc/skel: Musc/skel: None reported Neuropsych: Neuropsych: None reported Anesthetic Plan: ASA status: 3 Anesthesia: MAC Other: [place] block Patient informed he may be a high risk of converting to general given his severe sleep apnea and body habitus Patient ok with proceeding with very little sedation - does not mind being awake enough to communicate with OR team Risk of > 500 ml blood loss (7ml/kg in children): No Other Pertinent Information: still on plavix, took lisinopril and bystolic this morning PFSH Anesthesia PFSH: Social History Smoking and tobacco status: former smoker Alcohol intake: never Data Anesthesia Cardiac Studies: No Data to Display
--- NOTE | 2020-01-02 07:08 | W.PM.OPSUD ---
Surgery/Procedure H&P Update DATE OF PROCEDURE: January 02, 2020 DATE H&P PERFORMED: 12/26/19 H&P UPDATE INFORMATION: I have reviewed H&P completed within last 30 days, I have examined patient prior to procedure and No changes to prior documentation PREOP DIAGNOSIS: Right Carpal Tunnel Syndrome PLANNED PROCEDURE: Operation Date: 01/02/20 07:35 Proposed Procedures p Carpal Tunnel Release [id number] G56.03(Right) - Valerie Soriano MD
[2020-01-02 08:55] VITALS: BP 127/85; PULSE 72; RESP 16; TEMP 36.1; O2SAT 95
--- NOTE | 2020-01-02 09:03 | PM.OP ---
Operative Report Date of procedure: January 02, 2020 Pre-op Diagnosis: Right Carpal Tunnel Syndrome Post-op diagnosis: same Post-op Findings: Severe compression across the median nerve Procedure Done: Right carpal tunnel release Pathology: none sent Surgeon: Valerie Soriano Appeals Reviewer Veteran: [facility] OR technicians Anesthesia: Other (Manny block) Estimated blood loss (mL): 0 Tourniquet time (min): 43 IV fluids (mL): 700 Urine output (mL): 0 Complications: None Condition: stable Disposition: same day Brief History: This 44-year-old gentleman presented with complaints of bilateral carpal tunnel syndrome. He was more symptomatic on the right than the left. He had difficulties with activities of daily living. He complained of nightly numbness in both hands, again right greater than left. Procedure: The patient was brought to the operating theater. The patient had a Manny block with MAC. The tourniquet was elevated to 275 mmHg for a total tourniquet time of 43 minutes. The patient was also given 2 g of Ancef preoperatively. The arm was then prepped and draped with DuraPrep in usual fashion with the arm draped free. A surgical pause was performed. At the time, the surgical pause, we confirmed the site and side of surgery. We also confirmed the patient's identity, appropriate and timely administration of preoperative antibiotics and preoperative surgical markings. An incision was then made along the thenar crease. The incision crossed the wrist joint in a curvilinear fashion. Dissection continued through skin and soft tissues using a scalpel. The palmaris longus was identified along with the transverse carpal ligament. Each of these was released carefully to avoid injury to the median nerve. We were able to dissect gently into the carpal canal which was noted to be quite tight with significant compression across the median nerve. The nerve was visualized and was an hourglass shape. The canal was subsequently palpated to assure there was no bony encroachment upon the canal. There was a quite thickened fibrous tissue within the canal, and this was opened longitudinally as well. The canal was then palpated distally and proximally to assure that my small finger was passed easily without impingement. Finding this to be so, attention was directed to closure. The wound was irrigated with ropivacaine plain. It was then closed with 3-0 nylon in an interrupted mattress fashion. Sterile dressing was then placed consisting of Xeroform gauze, fluffed fluffs, sterile soft roll, a volar splint, and an Navin wrap. The tourniquet was released after 43 minutes. There were no complications. There were no specimens. The procedure was well tolerated. Plan is the patient will be discharged home.
[2020-01-02 09:10] VITALS: BP 124/75; PULSE 74; RESP 15; TEMP 36.6; O2SAT 96
== END 2020-01-02 09:25 | disposition home or self-care (01) ==
PROVIDERS: Family Provider Family Medicine; PCP Family Medicine; Visit Provider Specialist
PROC: (CPT 64721; principal; 2020-01-02 07:35)
DX: G56.01 Carpal tunnel syndrome, right upper limb (principal); G47.30 Sleep apnea, unspecified; I25.10 Atherosclerotic heart disease of native coronary artery without angina pectoris; I10 Essential (primary) hypertension; I25.2 Old myocardial infarction; Z95.5 Presence of coronary angioplasty implant and graft; K21.9 Gastro-esophageal reflux disease without esophagitis; E78.5 Hyperlipidemia, unspecified; E66.01 Morbid (severe) obesity due to excess calories; Z68.42 Body mass index [BMI] 45.0-49.9, adult; Z87.891 Personal history of nicotine dependence; Z79.82 Long term (current) use of aspirin; Z82.49 Family history of ischemic heart disease and other diseases of the circulatory system
CPT/HCPCS: 64721; 12345; 96365; J0131; J0690; J2001; J2250; J3010; J3490; J7030

== ENCOUNTER 2020-01-16 13:56 | Outpatient (CLI) | payer BC, SELFPAY | END 2020-01-16 13:57 | disposition home or self-care (01) | LOC: SPT 13:56 | PROVIDERS: Family Provider Family Medicine; PCP Family Medicine; Visit Provider Specialist | DX: Z46.89 Encounter for fitting and adjustment of other specified devices (principal); G56.01 Carpal tunnel syndrome, right upper limb; Z98.890 Other specified postprocedural states | CPT/HCPCS: L3908 ==

== ENCOUNTER → 2020-01-23 08:35 | Outpatient (BNVA) | payer BC, SELFPAY | PROVIDERS: Family Provider Family Medicine; PCP Family Medicine; Visit Provider Family Medicine | DX: Z12.5 Encounter for screening for malignant neoplasm of prostate (principal); I10 Essential (primary) hypertension; K22.719 Barrett's esophagus with dysplasia, unspecified | CPT/HCPCS: 80053; 80061; 82044; G0103 ==

== ENCOUNTER 2020-02-23 06:30 | Day surgery (SDC) | payer BC, SELFPAY ==
[2020-02-22 09:33] VITALS: BMI 47.0
--- NOTE | 2020-02-22 09:44 | SUR.PREOP ---
PER DR DIAMOND, HOLD PLAVIX AND ASPIRIN DAY OF SURGERY ONLY. PATIENTS MADE AWARE
[2020-02-23 06:43] VITALS: BP 130/79; PULSE 69; RESP 18; TEMP 36.5; O2SAT 96
[2020-02-23] MEDS: sodium chloride 0.9% 1,000 ML 30 ML IV (07:01)
[2020-02-23] MEDS: CELEcoxib 200 mg Capsule 400 MG PO (07:14)
--- NOTE | 2020-02-23 07:42 | ANES.PREANE2 ---
Pre-Anesthetic Assessment Pre-Anesthetic Assessment: Height/Weight: Height 1.7 m Weight 136.078 kg Temp Pulse Resp BP Pulse Ox 97.7 F 69 18 130/79 96 02/23/20 06:43 02/23/20 06:43 02/23/20 06:43 02/23/20 06:43 02/23/20 06:43 Preop Diagnosis: Left carpal tunnel syndrome Proposed Procedure: Operation Date: 02/23/20 08:00 Proposed Procedures p Carpal Tunnel Release 55549 G56.02(Left) - Valerie Soriano MD Last intake: Intake Last Liquid Date 02/22/20 Last Liquid Time 21:00 Last Solid Date 02/22/20 Last Solid Time 20:00 Social: Social History: Tobacco (quit one week ago) and No alcohol Exam: Pre-Anes Outpt Exam: alert, oriented x 3, clear to auscultation bilaterally and regular rate & rhythm Airway: Submandibular: WNL Cervical ROM: WNL MP: 2 Dentition: False (upper) and Other (poor dentation) History/ROS: No significant history except as noted Pulmonary: Pulmonary: COPD, SILVA and Sleep apnea CV/HEM: CV/HEM: CAD (08/2016 stents), CHF, HTN and CA : : None reported Hepatic: Hepatic: None reported GI: GI: GERD (controlled) Metabolic: Metabolic: Hyperlipidemia and Morbid obesity Musc/skel: Musc/skel: None reported Neuropsych: Neuropsych: None reported Anesthetic Plan: ASA status: 3 Anesthesia: Anesthesia Evaluation and MAC Risk of > 500 ml blood loss (7ml/kg in children): No Meds/Allergies Current Medications: Current Medications Generic Name Dose Route Start Last Admin Trade Name Freq PRN Reason Stop Dose Admin Sodium Chloride 1,000 mls @ 30 ml s/hr 02/23/20 06:45 02/23/20 07:01 Sodium Chloride 0.9% IV 02/24/20 06:44 30 mls/hr .Q24H DELGADO Administration PFSH Anesthesia PFSH: Medical History Batres esophagus Congestive heart failure Improved acute CHF exacerbation Discharged with Lasix 80 mg twice daily Call cardiology office at that time for further instructions Coronary artery disease Continue to follow-up with cardiology as scheduled. Chest pain and shortness of breath related to acute CHF exacerbation Erectile dysfunction Hypertension Continue with lisinopril, Lasix, digoxin, Bystolic as previously prescribed Murmur Obstructive sleep apnea Surgical History Hx of cardiac cath Hx of cholecystectomy Family History Mother CAD (coronary artery disease) Father Stroke Social History Smoking and tobacco status: former smoker Alcohol intake: never Data Anesthesia Cardiac Studies: No Data to Display
--- NOTE | 2020-02-23 08:04 | W.PM.OPSUD ---
Surgery/Procedure H&P Update DATE OF PROCEDURE: February 23, 2020 DATE H&P PERFORMED: 02/19/20 H&P UPDATE INFORMATION: I have reviewed H&P completed within last 30 days, I have examined patient prior to procedure and [place] [facility] [place] indicated PREOP DIAGNOSIS: Left carpal tunnel syndrome PLANNED PROCEDURE: Operation Date: 02/23/20 08:00 Proposed Procedures p Carpal Tunnel Release 44075 G56.02(Left) - Valerie Soriano MD
[2020-02-23 09:11] VITALS: BP 143/78; PULSE 66; RESP 18; TEMP 36.6; O2SAT 95
--- NOTE | 2020-02-23 09:22 | P.OP_ITS ---
Operative Report Date of procedure: February 23, 2020 Pre-op Diagnosis: Left carpal tunnel syndrome Post-op diagnosis: same Post-op Findings: Severe compression across the median nerve Procedure Done: Left carpal tunnel release Specimens removed/disposition: None Pathology: none sent Surgeon: Valerie Soriano Core Inserter: [facility] OR technicians Anesthesia: MAC ([place] block with MAC) Estimated blood loss (mL): 5 Tourniquet time (min): 39 Tourniquet time: at 250 mmHg IV fluids (mL): 300 Complications: None Findings: Severe compression across the median nerve as noted above. Condition: stable Disposition: same day (Then discharged home with family) Brief History: This 44-year-old gentleman presented with complaints of bilateral carpal tunnel syndrome. He was more symptomatic on the right than the left. He underwent right carpal tunnel release. His symptoms have resolved in that hand and he has done very well. He had difficulties with activities of daily living following this procedure secondary to his left hand symptoms. Therefore, he is scheduled for the above procedure. Procedure: The patient was brought to the operating theater. The patient had a Manny block with MAC. The tourniquet was elevated to 250 mmHg for a total tourniquet time of 39 minutes. The patient was also given 2 g of Ancef preoperatively. The arm was then prepped and draped with DuraPrep in usual fashion with the arm draped free. A surgical pause was performed. At the time, the surgical pause, we confirmed the site and side of surgery. We also confirmed the patient's identity, appropriate and timely administration of preoperative antibiotics and preoperative surgical markings. An incision was then made along the thenar crease. The incision crossed the wrist joint in a curvilinear fashion. Dissection continued through skin and soft tissues using a scalpel. The palmaris longus was identified along with the transverse carpal ligament. Each of these was released carefully to avoid injury to the median nerve. We were able to dissect gently into the carpal canal which was noted to be quite tight with significant compression across the median nerve. The nerve was visualized and was an hourglass shape. The canal was subsequently palpated to assure there was no bony encroachment upon the canal. There was a quite thickened fibrous tissue within the canal, and this was opened longitudinally as well. The canal was then palpated distally and proximally to assure that my small finger was passed easily without impingement. Finding this to be so, attention was directed to closure. The wound was irrigated with ropivacaine plain. It was then closed with 3-0 nylon in an interrupted mattress fashion. Sterile dressing was then placed consisting of Xeroform gauze, fluffed fluffs, sterile soft roll, a volar splint, and an Navin wrap. The tourniquet was released after 43 minutes. There were no complications. There were no specimens. The procedure was well tolerated. Plan is the patient will be discharged home.
[2020-02-23 09:34] VITALS: BP 115/71; PULSE 68; RESP 18; O2SAT 95
== END 2020-02-23 09:40 | disposition home or self-care (01) ==
PROVIDERS: PCP Family Medicine; Visit Provider Specialist
PROC: (CPT 64721; principal; 2020-02-23 08:00)
DX: G56.02 Carpal tunnel syndrome, left upper limb (principal); J44.9 Chronic obstructive pulmonary disease, unspecified; I25.10 Atherosclerotic heart disease of native coronary artery without angina pectoris; Z95.5 Presence of coronary angioplasty implant and graft; I11.0 Hypertensive heart disease with heart failure; I50.9 Heart failure, unspecified; I25.2 Old myocardial infarction; E78.5 Hyperlipidemia, unspecified; K21.9 Gastro-esophageal reflux disease without esophagitis; E66.01 Morbid (severe) obesity due to excess calories; Z68.42 Body mass index [BMI] 45.0-49.9, adult; G47.33 Obstructive sleep apnea (adult) (pediatric); Z82.49 Family history of ischemic heart disease and other diseases of the circulatory system; Z79.82 Long term (current) use of aspirin
CPT/HCPCS: 64721; 12345; 96365; J0131; J0690; J2001; J2250; J3010; J3490; J7030

== ENCOUNTER 2020-04-02 20:00 | Outpatient (CLI) | payer BC, SELFPAY | END 2020-04-02 20:01 | disposition home or self-care (01) | LOC: SLEEP 04-03 10:03 | PROVIDERS: PCP Family Medicine; Visit Provider Family Medicine | DX: G47.33 Obstructive sleep apnea (adult) (pediatric) (principal) | CPT/HCPCS: 95811 ==

== ENCOUNTER → 2020-08-06 13:51 | Outpatient (BNVA) | payer BC, SELFPAY | PROVIDERS: PCP Family Medicine; Visit Provider Family Medicine | DX: M25.562 Pain in left knee (principal) | CPT/HCPCS: 73562 ==

== ENCOUNTER → 2020-12-19 16:08 | Outpatient (BNVA) | payer BC, SELFPAY | PROVIDERS: PCP Family Medicine; Visit Provider Internal Medicine Cardiovascular Disease | DX: I10 Essential (primary) hypertension (principal); I50.83 High output heart failure; I25.10 Atherosclerotic heart disease of native coronary artery without angina pectoris; R07.9 Chest pain, unspecified | CPT/HCPCS: 80048; 80061; 80162 ==

== ENCOUNTER → 2021-12-17 08:11 | Outpatient (BNVA) | payer BC, SELFPAY | PROVIDERS: PCP Family Medicine; Visit Provider Family Medicine | DX: I10 Essential (primary) hypertension (principal); Z12.5 Encounter for screening for malignant neoplasm of prostate; N52.9 Male erectile dysfunction, unspecified; E87.6 Hypokalemia; R53.83 Other fatigue | CPT/HCPCS: 80053; 80061; 84403; 84443; 85025; G0103 ==

== ENCOUNTER → 2022-02-17 15:39 | Outpatient (BNVA) | payer BC, SELFPAY | PROVIDERS: PCP Family Medicine; Visit Provider Internal Medicine | DX: I50.9 Heart failure, unspecified (principal); R07.9 Chest pain, unspecified; I10 Essential (primary) hypertension | CPT/HCPCS: 36415; 80048; 83880 ==

== ENCOUNTER 2022-03-17 09:13 | Outpatient (CLI) | payer BC, SELFPAY ==
--- NOTE | 2022-03-17 09:15 | USCV_ITS ---
Giuliano Batres Age: 46 Gender: M : 1975 Exam Date: 03/17/2022 09:54 Ordering Phys: Jj Tay M.D ([email or web address]) Technologist: Aaron Metcalf Exam Location: [facility] [place] Indication: hx of mi BP: 180 / 100 HR: 75 Rhythm: Sinus Technical Quality: Adequate MEASUREMENTS (Male / Female) Normal Values 2D ECHO LV Diastolic Diameter PLAX 4.1 cm 4.2 - 5.9 / 3.9 - 5.3 cm LV Systolic Diameter PLAX 2.6 cm IVS Diastolic Thickness 1.1 cm 0.6 - 1.0 / 0.6 - 0.9 cm IVS Systolic Thickness 1.3 cm LVPW Diastolic Thickness 1.5 cm 0.6 - 1.0 / 0.6 - 0.9 cm LVPW Systolic Thickness 1.3 cm LVOT Diameter 2.0 cm LV Ejection Fraction 2D Teich 63.2 % LV Ejection Fraction MOD 2C 49.9 % LV Ejection Fraction 2C AL 49.5 % LA Diameter 4.0 cm Aorta at Sinotubular Diameter 3.3 cm IVC Diameter 2.4 cm M-MODE LV Diastolic Diameter MM 5.1 cm 4.2 - 5.9 / 3.9 - 5.3 cm LV Systolic Diameter MM 3.2 cm LV Ejection Fraction MM Teich 67.8 % IVS Diastolic Thickness MM 1.0 cm 0.6 - 1.0 / 0.6 - 0.9 cm IVS Systolic Thickness MM 1.6 cm LVPW Diastolic Thickness MM 1.1 cm 0.6 - 1.0 / 0.6 - 0.9 cm LVPW Systolic Thickness MM 2.3 cm RV Diastolic Diameter MM 1.5 cm Aortic Annulus Diameter 2.2 cm LA Ao Ratio MM 2.0 MV E Point Septal Separation 0.8 cm DOPPLER AV Peak Velocity 144.0 cm/s LVOT Peak Velocity 104.0 cm/s AV Area Cont Eq vti 3.1 cm squared AV Area Cont Eq pk 2.4 cm squared MV Area PHT 5.0 cm squared Mitral E to A Ratio 0.9 MV E' Velocity 39.0 cm/s Mitral E to MV E' Ratio 6.0 Mitral E to LV E' Lateral Ratio 5.8 Mitral E to LV E' Septal Ratio 6.3 TR Peak Velocity 139.3 cm/s TR Peak Gradient 7.8 mmHg TV Peak E Velocity 66.0 cm/s Right Atrial Pressure 3.0 mmHg Pulmonary Artery Systolic Pressu 10.8 mmHg PV Peak Velocity 106.0 cm/s FINDINGS Left Ventricle Normal left ventricular size. LV systolic function is normal with EF of 55-60%. No regional wall motion abnormalities. Grade 1 diastolic dysfunction Right Ventricle The right ventricle is normal in size and function. Right Atrium The right atrium is normal in size. Left Atrium The left atrium is normal in size. Mitral Valve Structurally normal mitral valve without significant stenosis or prolapse. There is no mitral regurgitation. Aortic Valve Structurally normal aortic valve without significant sclerosis or stenosis. There is no aortic regurgitation. Tricuspid Valve Mild tricuspid regurgitation. Pulmonary artery systolic pressure is normal Pulmonic Valve Not well-visualized Pericardium Normal pericardium without effusion. Aorta Mild dilation of ascending aorta IVC CONCLUSIONS LV systolic function is normal with EF 55 to 60%. Grade 1 diastolic dysfunction. Mild tricuspid regurgitation. Mild dilation of ascending aorta Compared to prior echocardiogram from 2019, no significant changes are seen. Jj Tay MD (Electronically Signed) Final Date: 28 March 2022 23:39 S
== END 2022-03-17 09:14 | disposition home or self-care (01) ==
PROVIDERS: PCP Family Medicine; Visit Provider Internal Medicine
DX: I50.9 Heart failure, unspecified (principal); I07.1 Rheumatic tricuspid insufficiency; I77.819 Aortic ectasia, unspecified site
CPT/HCPCS: 93306

== ENCOUNTER 2022-03-31 07:30 | Outpatient (CLI) | payer BC, SELFPAY ==
[2022-03-31 07:48] VITALS: BMI 41.3
--- NOTE | 2022-03-31 07:50 | ECG_ITS ---
[facility] Test Date: 2022-03-31 Pat Name: Giuliano Batres Department: Room: Gender: Male Ged Instructor: Terra Choifus : 1975 Requested By: Jj Tay Order Number: [id number] Kulwant MD: Jj Tay M.D. Interpretive Statements NAME OF STUDY: LEXISCAN SESTAMIBI STRESS TEST INDICATION: [Chest Pain, ] Procedure: At the baseline, the blood pressure was 143/87 mmHg with a heart rate of 75 bpm. The electrocardiogram showed normal sinus rhythm, normal axis with normal ST and T's. The Lexiscan was infused over a period of 20 seconds. A total of 0.4 mg of Lexiscan was infused. The stress phase was continued for a total of 5 minutes. Heart rate was at the end of stress phase was 87 bpm and a blood pressure of 157/92 mmHg. The EKG at the peak infusion revealed since normal sinus rhythm with no significant ST-T wave changes. Sestamibi was injected 20 seconds after the Lexiscan infusion. Blood pressure at the end of recovery phase was 133/87 mmHg with a heart rate of 91 bpm. Conclusion: 1. Normal EKG response to Lexiscan infusion 2. No Lexiscan induced chest pain or cardiac arrhythmia. 3. Normal blood pressure and heart rate response. 4. Sestamibi/sestamibi perfusion scan pending; see separate report. Electronically Signed On 03-31-2022 12:32:32 CDT by Jj Tay M.D. [email or web address]
--- NOTE | 2022-03-31 07:50 | NMCV_ITS ---
NM leilani perf SPECT r/s* [id number] Giuliano Batres Age: 46 Gender: M : 1975 Exam Date: 03/31/2022 07:50 Ordering Phys: Jj Tay M.D ([email or web address]) Technologist: RUBI Aragon Exam Location: [facility] Indications: CHEST PAIN STRESS TEST Please see separate stress test report in [facility] for full findings IMAGE PROTOCOL Rest/Stress 1 Lexiscan Day Radiopharmaceutical Dose (mCi) Administration Site Administered by Rest: Tc-99m 10.8 IV RUBI Weaver Sestamibi Stress:Tc-99m 32.8 IV RUBI Aragon Sestamiankur Rest: 31-Mar-2022 60 Discovery 630 Stress: 31-Mar-2022 30 Discovery 630 0.4mg Lexiscan. Images obtained in supine and prone position. SPECT RESULTS Technical Quality: Excellent Raw Data Analysis: Normal Image Corrections: No attenuation or motion correction applied Summed Stress Score: 0 Summed Rest Score: 0 Summed Difference Score: 0 PERFUSION FINDINGS SPECT images demonstrate homogeneous tracer distribution throughout the myocardium. FUNCTIONAL RESULTS (calculated via Gated SPECT) Stress Image LV EF (%): 78 Stress EDV (mL):134 TID: 1.05 Stress ESV (mL):30 FUNCTIONAL FINDINGS: There is normal left ventricular systolic function. IMPRESSIONS 1. Normal myocardial perfusion imaging with no evidence of ischemia 2. LV systolic function is normal Jj Tay MD (Electronically Signed) Final Date: 31 March 2022 12:22 S
[2022-03-31] MEDS: regadenoson 0.4 Mg/5 ml Syringe IVP (09:18)
[2022-03-31 09:28] VITALS: BP 133/87; PULSE 80
== END 2022-03-31 07:31 | disposition home or self-care (01) ==
LOC: CDL 07:34
PROVIDERS: PCP Family Medicine; Visit Provider Internal Medicine
DX: R07.9 Chest pain, unspecified (principal)
CPT/HCPCS: 78452; 93017; A9500; J2785

== ENCOUNTER → 2022-04-16 08:05 | Outpatient (BNVA) | payer BC, SELFPAY | PROVIDERS: PCP Family Medicine; Visit Provider Family Medicine | DX: R79.89 Other specified abnormal findings of blood chemistry (principal); R00.2 Palpitations | CPT/HCPCS: 82533; 84403 ==

== ENCOUNTER → 2022-05-19 14:46 | Outpatient (BNVA) | payer BC, SELFPAY | PROVIDERS: PCP Family Medicine; Visit Provider Internal Medicine Critical Care Medicine | DX: I50.83 High output heart failure (principal); F17.219 Nicotine dependence, cigarettes, with unspecified nicotine-induced disorders; R53.83 Other fatigue; G47.33 Obstructive sleep apnea (adult) (pediatric); J42 Unspecified chronic bronchitis; I25.10 Atherosclerotic heart disease of native coronary artery without angina pectoris | CPT/HCPCS: 36415; 82533 ==

== ENCOUNTER → 2022-07-28 08:50 | Outpatient (BNVA) | payer BC, SELFPAY | PROVIDERS: PCP Family Medicine; Visit Provider Family Medicine | DX: R79.89 Other specified abnormal findings of blood chemistry (principal); E87.6 Hypokalemia; N39.3 Stress incontinence (female) (male); R35.0 Frequency of micturition; I10 Essential (primary) hypertension | CPT/HCPCS: 81000; 84132; 84403; 85025; 87086 ==

== ENCOUNTER 2022-08-25 07:18 | Outpatient (CLI) | payer BC, SELFPAY ==
[2022-08-25 08:32] LABS: 25 Hydroxy Vitamin D 33 ng/mL (30-100)
[2022-09-02 16:00] LABS: Cortisol ,Free,LC/MS, S 0.39 mcg/dL
== END 2022-08-25 07:19 | disposition home or self-care (01) ==
LOC: LAB 07:20
PROVIDERS: PCP Family Medicine; Visit Provider Internal Medicine Pulmonary Disease
DX: R53.83 Other fatigue (principal)
CPT/HCPCS: 36415; 82306; 82530

== ENCOUNTER → 2022-10-22 07:31 | Outpatient (BNVA) | payer BC, SELFPAY | PROVIDERS: PCP Family Medicine; Visit Provider Family Medicine | DX: N52.9 Male erectile dysfunction, unspecified (principal); R79.89 Other specified abnormal findings of blood chemistry | CPT/HCPCS: 84403 ==

== ENCOUNTER 2022-12-17 06:15 | Outpatient (CLI) | payer BC, SELFPAY ==
[2022-12-17 07:30] LABS: Cortisol Random 10.03 ug/dL (2.47-19.5); Free T4 Free Thyroxine 1.19 ng/dL (0.82-1.77); Prostate Specific Antigen 0.558 ng/mL (0-4); Testosterone Total 188.7 ng/dL (249-836); Thyroid Stimulating Hormone 0.97 uIU/mL (0.27-4.20)
[2022-12-17 10:12] LABS: Follicle Stimulating Hormone 1.4 mIU/mL (1.5-12.4); Luteinizing Hormone 1.6 mIU/mL (1.7-8.6); Prolactin 16.85 ng/mL (4.0-15.2)
[2022-12-20 18:14] LABS: Testosterone, Free 35.7 pg/mL (46.0-224.0)
[2022-12-24 14:19] LABS: IGF1 LC/MS 107 ng/mL (52-328); Z Score (Male) -0.6 SD (-2.0 - +2.0)
== END 2022-12-17 06:16 | disposition home or self-care (01) ==
LOC: LAB 06:17
PROVIDERS: PCP Family Medicine; Visit Provider Internal Medicine
DX: Z12.5 Encounter for screening for malignant neoplasm of prostate (principal); E23.7 Disorder of pituitary gland, unspecified; R53.83 Other fatigue; R79.89 Other specified abnormal findings of blood chemistry
CPT/HCPCS: 36415; 82533; 83001; 83002; 84146; 84153; 84305; 84402; 84403; 84439; 84443

== ENCOUNTER → 2023-02-24 15:46 | Outpatient (BNVA) | payer BC, SELFPAY | PROVIDERS: PCP Family Medicine; Visit Provider Internal Medicine | DX: I11.0 Hypertensive heart disease with heart failure (principal); I50.9 Heart failure, unspecified | CPT/HCPCS: 36415; 80048; 83880 ==

== ENCOUNTER → 2023-03-13 17:34 | Outpatient (BNVA) | payer BC, SELFPAY | PROVIDERS: PCP Family Medicine; Visit Provider Nurse Practitioner Family | DX: R10.9 Unspecified abdominal pain (principal) | CPT/HCPCS: 81000 ==

== ENCOUNTER 2023-04-27 07:21 | Outpatient (CLI) | payer BC, SELFPAY ==
[2023-04-27 08:06] LABS: Chol HDL Ratio 3.06 mg/dL (1.0-5.00); Cholesterol 110 mg/dL (0-200); HDL Cholesterol 36 mg/dL (60-100); LDL Cholesterol Calculated 42 mg/dL (50-129); LDL HDL Ratio 1.17 RATIO (0.00-3.22); Triglycerides 162 mg/dL (0-150)
[2023-04-27 08:08] LABS: Estmated Average Glucose 117; Hemoglobin A1C 5.7 % (4.0-6.0)
[2023-04-27 08:13] LABS: Testosterone Total 164.2 ng/dL (249-836)
[2023-04-27 08:43] LABS: Prolactin 2.12 ng/mL (4.0-15.2)
== END 2023-04-27 07:22 | disposition home or self-care (01) ==
PROVIDERS: PCP Family Medicine; Visit Provider Internal Medicine
DX: E23.7 Disorder of pituitary gland, unspecified (principal); E66.01 Morbid (severe) obesity due to excess calories; R79.89 Other specified abnormal findings of blood chemistry
CPT/HCPCS: 36415; 80061; 83036; 84146; 84403

== ENCOUNTER → 2023-05-04 09:51 | Day surgery (SDC) | payer BC, SELFPAY ==
[2023-05-04 10:00] VITALS: BP 132/78; PULSE 85; RESP 18; TEMP 36.1; O2SAT 96
[2023-05-04] MEDS: cosyntropin 0.25 mg SDV IVP (10:07)
[2023-05-04 10:44] LABS: Cosyntropin Baseline 8.77 mcg/dL
[2023-05-04 11:35] LABS: Cosyntropin 30 Minute 24.05 mcg/dL
[2023-05-04 11:56] LABS: Cosyntropin 1 Hour 24.87 mcg/dL
== END ==
LOC: GILAB 09:51
PROVIDERS: PCP Family Medicine; Visit Provider Internal Medicine
DX: E23.7 Disorder of pituitary gland, unspecified (principal)
CPT/HCPCS: 36415; 82533; 96374; J0834

== ENCOUNTER 2024-01-11 07:52 | Outpatient (CLI) | payer BC, SELFPAY ==
[2024-01-11 08:18] LABS: Basophils # 0.1 10^3/uL (0.0-0.1); Basophils % 0.6 %; Eosinophils # 0.2 10^3/uL (0.0-0.8); Eosinophils % 2.3 %; Hematocrit 44.1 % (37-53); Lymphocytes # 2.8 10^3/uL (0.8-4.8); Lymphocytes % 30.9 %; Mean Corpuscular HGB Conc 34.2 g/dL (30-55); Mean Corpuscular Hemoglobin 28.9 pg (27-33); Mean Corpuscular Volume 84.3 fl (82-101); Mean Platelet Volume 10.8 fL (7.4-10.4); Monocytes # 0.7 10^3/uL (0.2-0.9); Monocytes % 7.5 %; Neutrophils # 5.26 10^3/uL (1.8-7.7); Neutrophils % 58.3 %; Nucleated Red Blood Cells % 0 %; Platelet Count 246 10^3/cmm (157-399); Red Blood Count 5.23 10^6/uL (3.85-5.65); Red Cell Distribution Width 12.9 % (12.1-15.1); White Blood Count 9.03 10^3/uL (3.29-11.43)
[2024-01-11 08:43] LABS: Alanine Aminotransferase 29 U/L (0-41); Alkaline Phosphatase 89 U/L (40-130); Anion Gap 14.9 (5-19); Aspartate Amino Transferase 19 U/L (0-40); Blood Urea Nitrogen 14 mg/dL (6-20); Calcium 9.4 mg/dL (8.5-10.5); Carbon Dioxide 26 mmol/L (22-29); Chloride 102 mmol/L (98-107); Chol HDL Ratio 4.21 mg/dL (1.0-5.00); Cholesterol 139 mg/dL (0-200); Globulin 3.3 g/dL (1.3-4.6); Glomerular Filtration Rate 103.2 mL/min (90-130); Glucose 93 mg/dL (65-115); HDL Cholesterol 33 mg/dL (60-100); LDL Cholesterol Calculated 72 mg/dL (50-129); LDL HDL Ratio 2.18 RATIO (0.00-3.22); Osmolality Calculated 288 mOsm/kg (285-295); Potassium 3.9 mmol/L (3.5-5.1); Sodium 139 mmol/L (136-145); Total Bilirubin 0.4 mg/dL (0.15-1.2); Total Protein 7.3 g/dL (6.6-8.7); Triglycerides 171 mg/dL (0-150)
[2024-01-11 08:47] LABS: Creatinine Urine, Random 27 mg/dL (39-259); Microalbum Creatinine Ratio Ur 37 mg/dL (0-20); Microalbumin Random Urine 1 ug/dL (0-20)
[2024-01-11 08:48] LABS: Testosterone Total 205.4 ng/dL (249-836)
== END 2024-01-11 07:53 | disposition home or self-care (01) ==
LOC: LAB 07:54
PROVIDERS: PCP Family Medicine; Visit Provider Internal Medicine
DX: I10 Essential (primary) hypertension (principal); E23.7 Disorder of pituitary gland, unspecified; E66.01 Morbid (severe) obesity due to excess calories
CPT/HCPCS: 36415; 80053; 80061; 82044; 84403; 85025

== ENCOUNTER 2024-01-12 08:11 | Outpatient (CLI) | payer BC, SELFPAY ==
[2024-01-12 10:58] LABS: Total Volume Urine 3200 ml
[2024-01-12 11:00] LABS: Urine Creatinine 72 mg/dL (39-259)
[2024-01-18 15:49] LABS: Free Cortisol Urine 31.3 mcg/24 h (4.0-50.0); Total Urine 3200 mL; Urine Creatinine 2.18 g/24 h (0.50-2.15)
== END 2024-01-12 08:12 | disposition home or self-care (01) ==
LOC: LAB 08:12
PROVIDERS: Internal Medicine; PCP Family Medicine; Visit Provider Family Medicine
DX: E23.7 Disorder of pituitary gland, unspecified (principal); E66.01 Morbid (severe) obesity due to excess calories
CPT/HCPCS: 82530; 82570